=== PATIENT | male | born 1980 | race Caucasian/White ===

== ENCOUNTER 2021-12-23 21:06 | Emergency (ER) | payer MEDICARE, MEDICAID, SELFPAY ==
--- NOTE | 2021-12-23 | ECG_ITS ---
Test Reason : CHEST PAIN Blood Pressure : / mmHG Vent. Rate : 104 BPM Atrial Rate : 104 BPM P-R Int : 148 ms QRS Dur : 094 ms QT Int : 322 ms P-R-T Axes : 024 064 -07 degrees QTc Int : 423 ms Sinus tachycardia Abnormal QRS-T angle, consider primary T wave abnormality Abnormal ECG When compared with ECG of 31-OCT-2019 19:05, No significant change was found Referred By: Generic ED Physician Electronically Signed By:ROLY BONILLA MD
--- NOTE | ~2021-12-23 | XR_ITS ---
EXAMINATION: XR CHEST CLINICAL INFORMATION: Chest pain COMPARISON: None TECHNIQUE: Frontal view of the chest was obtained. 11:08 PM FINDINGS: No significant abnormality is noted involving the heart, lungs, mediastinum, bony thorax or soft tissues. XR/XR chest 1V IMPRESSION: Unremarkable examination.
[2021-12-23 21:11] VITALS: BP 136/92; PULSE 112; RESP 18; TEMP 37.2; O2SAT 97; BMI 33.9
[2021-12-23 22:17] LABS: MANUAL DIFF FLAG NO
[2021-12-23 22:19] LABS: Basophils Absolute Auto 0.1 X10*3/uL (0.0-0.2); Basophils Percent Auto 0.8 % (0-2); Eosinophils Absolute Auto 0.5 X10*3/uL (0.0-0.4); Eosinophils Percent Auto 5.5 % (0-4); Hematocrit 46.8 % (42.0-52.0); Hemoglobin 15.5 g/dl (14.0-18.0); Imm Gran Abs Auto 0.03 X10*3/uL (0.00-0.03); Imm Gran Pct Auto 0.3 % (0.0-0.4); Lymphocytes Percent Auto 34.6 % (20-40); Mean Corpuscular HGB Conc 33.1 g/dl (31.0-36.0); Mean Corpuscular Hemoglobin 27.4 pg (27.0-33.0); Mean Corpuscular Volume 82.8 fL (80.0-98.0); Monocytes Absolute Auto 0.6 X10*3/uL (0.1-1.2); Monocytes Percent Auto 7.2 % (2-11); Neutrophils Absolute Auto 4.5 x10*3/uL (2.0-8.3); Neutrophils Percent Auto 51.6 % (45-73); Platelet Count 279 X10*3/uL (160-400); Red Blood Count 5.65 X10*6/uL (4.60-5.80); Red Cell Distribution Width 13.4 % (11.0-16.0); White Blood Count 8.8 X10*3/uL (4.8-10.8)
[2021-12-23 22:39] LABS: Alanine Aminotransferase 60 U/L (0-40); Alkaline Phosphatase 73 U/L (39-117); Anion Gap 13 (12-20); Aspartate Amino Transferase 27 U/L (5-37); Bilirubin Total 0.4 mg/dL (0.0-1.0); Blood Urea Nitrogen 16 mg/dL (9-16); Calcium 9.5 mg/dL (8.4-10.2); Carbon Dioxide 24 mmol/L (22-29); Chloride 108 mmol/L (96-108); Creatinine Clr Calc Pharmacy 102.1; Estimated Glomerular Filt Rate > 60; Glucose Random 94 mg/dL (60-115); Potassium 3.6 mmol/L (3.3-5.1); Sodium 141 mmol/L (135-145); Total Protein 7.3 g/dL (6.5-8.0)
[2021-12-23 22:45] LABS: Troponin-I High Sensitivity < 3.5 ng/L (<3.5-35.0)
--- NOTE | 2021-12-23 23:27 | ED.CHESTPAIN ---
HPI - Chest Pain General Chief Complaint: Chest Pain Stated Complaint: States heart hurts Time Seen by Provider: 12/23/21 23:14 Source: patient Mode of arrival: ambulatory Limitations: no limitations History of Present Illness HPI narrative: Patient comes to emergency room complaining of intermittent sharp chest pains lasting a few seconds, it has been going on for about 4 days now. Patient denies shortness of breath, no difficulty breathing. Patient states that he does not have chest pain, states that he feels like a sharp sensation in his heart intermittently. At this time, patient is asymptomatic. Patient denies fever chills, no URI symptoms, no calf pain Related Data Allergies Allergy/AdvReac Type Severity Reaction Status Date / Time No Known Allergies Allergy Unverified 05/02/20 18:21 Review of Systems Review of Systems: Constitutional : No Weight loss, No Fever, No Chills, No Night Sweats, No Fatigue, No Malaise ENT/Mouth : No Hearing loss, No Ear Pain, No Nasal Congestion, No Sinus Pain, No Hoarseness, No sore throat, No Rhinorrhea, No Swallowing Difficulty Eyes: No Eye Pain, No Swelling, No Redness, No Foreign Body, No Discharge, No Vision Changes Cardiovascular : Intermittent sharp pain sensation, asymptomatic a prescribed, No Chest Pain, No SOB, No Dyspnea on Exertion, No Orthopnea, No Edema, No Palpitations Respiratory : No Cough, No Sputum, No Wheezing, No Smoke Exposure, No Dyspnea Gastrointestinal : No Nausea, No Vomiting, No Diarrhea, No Constipation, No abdominal Pain, No Hematochezia, No Melena Genitourinary : no irregular bleeding, No Dysuria, No Urinary Frequency, No Hematuria, No Urinary Incontinence, No Urgency, No Flank Pain, No Urinary Flow Changes, No Hesitancy Musculoskeletal : No joint pain, No Myalgias, No Joint Swelling Skin : No Skin Lesions, No rash Neuro : No Weakness, No Numbness, No Paresthesias, No Loss of Consciousness, No Dizziness, No Headache Psych : No Anxiety/Panic, No Depression, No SI/HI/AH/VH, No Social Issues, Heme/Lymph: No Bruising, No Bleeding,No Lymphadenopathy Endocrine : No Polyuria, No Polydipsia, No Temperature Intolerance PMFSH Past Medical History Medical History No known health problems Surgical History No history of previous surgery Physical Exam Vital Signs: Vital Signs: Last Vital Signs Temp 99.0 F 12/23/21 21:11 Pulse 112 H 12/23/21 21:11 Resp 18 12/23/21 21:11 BP 136/92 H 12/23/21 21:11 Pulse Ox 97 12/23/21 21:11 BMI result Body Mass Index 33.9 Const: Other: Appearance: Alert. Oriented X3. No acute distress. Eyes: Pupils equal, round and reactive to light. ENT: Pharynx normal. Neck: Normal inspection. Neck supple. No lymph nodes noted. No crepitus CVS: Normal heart rate and rhythm. Pulses normal. Normal S1 and S2, heart rate approximately 80-90 Respiratory: No respiratory distress. Breath sounds normal. No Wheezing. No rales Abdomen: Soft and nontender. No rigidity. No distention. Skin: Skin warm and dry. Normal skin color. Normal skin turgor. Extremities: No lower extremity edema. No Lacerations. No Rash Neuro: Oriented X 3. No motor deficit. No sensory deficit. Moving all extremities. No slurred speech. CN 2 through 12 grossly intact Psych: calm, cooperative, normal affect Course Course Course Narrative: I discussed the labs and imaging with the patient, no acute findings. Patient is well appearing, is asymptomatic . Troponin negative despite having symptoms for 4 days. Wells criteria score for pulmonary embolism is 0 Is likely that patient's source of pain is musculoskeletal other than cardiac. I discussed with the patient that if he continues having symptoms, he would benefit from a stress test evaluation. MDM - Chest Pain Lab Data Result diagrams: 12/23/21 22:10 12/23/21 22:10 Labs: Lab Results 12/23/21 12/23/21 12/23/21 Range/Units 22:10 22:10 22:10 WBC 8.8 (4.8-10.8) X10*3/uL RBC 5.65 (4.60-5.80) X10*6/uL Hgb 15.5 (14.0-18.0) g/dl Hct 46.8 (42.0-52.0) % MCV 82.8 (80.0-98.0) fL MCH 27.4 (27.0-33.0) pg MCHC 33.1 (31.0-36.0) g/dl RDW 13.4 (11.0-16.0) % Plt Count 279 (160-400) X10*3/uL MPV 10.0 (9.4-12.4) fL Immature Gran % (Auto) 0.3 (0.0-0.4) % Neut % (Auto) 51.6 (45-73) % Lymph % (Auto) 34.6 (20-40) % [place] % (Auto) 7.2 (2-11) % Eos % (Auto) 5.5 H (0-4) % Baso % (Auto) 0.8 (0-2) % Lymph # (Auto) 3.0 (1.2-4.9) X10*3/uL [place] # (Auto) 0.6 (0.1-1.2) X10*3/uL Eos # (Auto) 0.5 H (0.0-0.4) X10*3/uL Baso # (Auto) 0.1 (0.0-0.2) X10*3/uL Abs Immat Gran (auto) 0.03 (0.00-0.03) X10*3/uL Absolute Neuts (auto) 4.5 (2.0-8.3) x10*3/uL Absolute Nucleated RBC 0.000 (0.0-0.012) X10*3/uL Nucleated RBC % (auto) 0.0 (0.0-0.2) /100WBC Sodium 141 (135-145) mmol/L Potassium 3.6 (3.3-5.1) mmol/L Chloride 108 (96-108) mmol/L Carbon Dioxide 24 (22-29) mmol/L Anion Gap 13 (12-20) BUN 16 (9-16) mg/dL Creatinine 1.25 (0.5-1.4) mg/dL Estim Creat Clear Calc 102.1 Estimated GFR > 60 Random Glucose 94 (60-115) mg/dL Calcium 9.5 (8.4-10.2) mg/dL Total Bilirubin 0.4 (0.0-1.0) mg/dL AST 27 (5-37) U/L ALT 60 H (0-40) U/L Alkaline Phosphatase 73 (39-117) U/L Troponin I High Sens < 3.5 (<3.5-35.0) ng/L Total Protein 7.3 (6.5-8.0) g/dL Albumin 4.0 (3.5-5.0) g/dL Imaging Data Chest x-ray: Radiologist's impression: No significant abnormality is noted involving the heart, lungs, mediastinum, bony thorax or soft tissues. XR/XR chest 1V IMPRESSION: Unremarkable examination. ECG Data ECG #1: Attestation: I personally reviewed and interpreted this ECG as follows: (One hundred one 4, sinus tachycardia, nonspecific T-wave inversions in leads 3 and 4, no reciprocal changes, no ST depressions or elevations, QTC 423, no changes since EKG from October 2019) Discharge Plan Discharge Clinical Impression: Atypical chest pain Patient Disposition: Home, Self-Care Instructions: Chest Pain (ED) Additional Instructions: Please follow-up with your primary care physician tomorrow. If you have any worsening or new symptoms, please return to the emergency room or call 911
[2021-12-23 23:41] VITALS: BP 149/90; PULSE 85; RESP 16; TEMP 36.7; O2SAT 96
[2021-12-23 23:43] VITALS: PULSE 85
== END 2021-12-23 23:49 | disposition home or self-care (01) ==
LOC: HO.ED 23:41
PROVIDERS: Emergency Provider Emergency Medicine
DX: R07.89 Other chest pain (principal); Z79.899 Other long term (current) drug therapy
CPT/HCPCS: 36415; 71045; 80053; 84484; 85025; 93005; 99283; 99285

== ENCOUNTER 2022-08-26 21:38 | Emergency (ER) | payer MEDICARE, MEDICAID, SELFPAY ==
--- NOTE | ~2022-08-26 | CT_ITS ---
EXAMINATION: CT ABDOMEN AND PELVIS WITHOUT CONTRAST CLINICAL INFORMATION: Flank pain, right COMPARISON: None TECHNIQUE: Multidetector volumetric imaging was performed from the superior aspect of the liver through the pubic symphysis. Sagittal and coronal reformatted images were obtained on the technologist's workstation. This CT examination was performed using dose optimization techniques as appropriate, variously including the following: *Automated exposure control *Adjustment of mA and/or kV according to patient size (this includes techniques or standardized protocols for targeted exams where dose is matched to indication/reason for exam; i.e. extremities or head) *Use of iterative reconstruction technique DLP: 649 mGy-cm FINDINGS: LUNG BASES: The visualized lung bases are unremarkable. LIVER, GALLBLADDER, AND BILIARY TREE: The liver is normal in size, shape, and attenuation. No focal hepatic lesion or biliary ductal dilatation is present. The gallbladder is unremarkable with no evidence of radiopaque gallstones, gallbladder wall thickening, or obvious pericholecystic inflammatory changes. PANCREAS: Unremarkable. SPLEEN: Unremarkable. ADRENAL GLANDS: Unremarkable. KIDNEYS AND URETERS: The kidneys are normal in size, shape, and attenuation. No hydronephrosis or hydroureter. 0.3 cm right midpole renal calculus left lower pole 0.3 cm calculus is 10.5 cm from the posterior axillary line. BLADDER: Decompressed with no gross abnormality. GASTROINTESTINAL TRACT: Decompressed stomach. Normal caliber small bowel. No obstruction. Normal appendix. No colonic wall thickening or acute inflammation. No free air or free fluid. ABDOMINAL WALL: No significant hernia is appreciated. LYMPH NODES: Normal. VASCULAR: Unremarkable. PELVIC VISCERA: The prostate and seminal vesicles are unremarkable. OSSEOUS STRUCTURES: No acute or suspicious osseous abnormality. Mild degenerative changes throughout the spine. CT/CT abdomen pelvis wo IV con IMPRESSION: No acute findings in the abdomen or pelvis. No hydronephrosis. Bilateral nonobstructing renal calculi. Fleischner guidelines were followed.
[2022-08-26 21:48] VITALS: BP 129/90; PULSE 102; RESP 16; TEMP 36.4; O2SAT 98; BMI 33.9
--- NOTE | 2022-08-26 21:57 | ED_ITS ---
HPI - General Adult General Chief complaint: Abdominal Pain Stated complaint: back pain Time Seen by Provider: 08/26/22 21:49 Source: patient Mode of arrival: ambulatory Limitations: no limitations History of Present Illness HPI narrative: 32-year-old male came in for evaluation of back pain. Mostly right flank area pain radiates down to the right lower abdomen/right groin area. Pain is worse with movement. No dysuria, no hematuria, no urinary frequency, no fever, no chills, no nausea, no vomiting. Passing flatus with normal bowel movement earlier today. Patient declined any back injury or trauma. Related Data Allergies Allergy/AdvReac Type Severity Reaction Status Date / Time No Known Allergies Allergy Unverified 05/02/20 18:21 Review of Systems Review of Systems: All other systems are reviewed and are negative Constitutional: Reports as per HPI and Reports no additional constitutional complaints Eyes: Reports as per HPI and Reports no additional eye complaints Reports system reviewed and no additional complaints, except as documented Cardiovascular: Reports as per HPI and Reports no additional cardiovascular complaints Respiratory: Reports as per HPI and Reports no additional respiratory complaints Gastrointestinal: Reports as per HPI and Reports no additional gastrointestinal complaints Genitourinary: Reports no additional female genitourinary complaints Musculoskeletal: Reports no additional musculoskeletal complaints Skin/Breast: Reports system reviewed and no additional complaints, except as docu Psychiatric: Reports no additional psychiatric complaints Endocrine: Reports no additional endocrine complaints Hematologic/Lymphatic: Reports no additional hematologic/lymphatic complaints Allergic/Immunologic: Reports no additional allergic/immunologic complaints Reports system reviewed and no additional complaints, except as documented and Reports Abnormal speech present [facility] Past Medical History Medical History No known health problems Surgical History No history of previous surgery Social History Social History Alcohol intake: never Advance Directives: No Advance Directives Information Provided: Yes Physical Exam ED Vital Signs: Vital Signs - 24 hr 08/26/22 21:48 Temperature 97.6 F Pulse Rate 102 H Respiratory Rate 16 Blood Pressure 129/90 H Pulse Oximetry 98 Oxygen Delivery Method Room Air BMI result Body Mass Index 33.9 Vital signs have been reviewed as appeared to be correct. Blood pressure normal. Heart rate normal. Respiration rate normal. Temperature normal. Oxygen saturation normal. Appearance: Alert. Oriented X3. No acute distress. Head: Normal external exam. Normocephalic. Atraumatic. No Temple signs noted. No raccoon eyes noted Eyes: PERRLA. EOMI. Conjunctiva and sclera normal. Eyelids normal. ENT: TM's Normal. Pharynx normal. Uvula midline. Moist mucous membranes. No trismus noted. No drooling noted. No muffled voice noted. Neck: Normal inspection. Neck supple. FROM. No adenopathy. Thyroid Normal. No meningeal signs. No neck mass noted. CVS: Normal heart rate and rhythm. Heart sound normal. No murmurs noted. Pulses normal throughout. Respiratory: No respiratory distress. Painless inspiration. Breath sounds normal . No wheezes/rales/rhonchi noted. Chest nontender. No accessory muscle usage noted or decreased air movement noted. Abdomen: Soft and nontender. Bowel sounds normal in all 4 quadrants. No distention noted. No organomegaly noted. No visible injury noted. Back: No CVA tenderness. Full range of motion noted. Skin: Skin warm and dry. Normal skin color. Normal skin turgor. No rashes/lesions/lacerations noted. Extremities: No lower extremity edema. Extremities exhibit normal range of motion. Extremities nontender. Neuro: Oriented X 3. Cranial nerve exam: II-XII are grossly intact No motor deficit. No sensory deficit. Reflexes normal. Course Course Course Narrative: Right flank pain, few RBCs in the UA concern of possible right kidney stone will consider CT of the abdomen and pelvis rule out kidney stone. Case signed out to Dr. Philip. Medical Decision Making Differential Diagnosis Differential Diagnoses: The differential diagnosis associated with the presentation includes (Myofascial pain syndrome, right obstructing kidney stone, lumbar radiculopathy) Lab Data MDM Lab Attestation statement: I reviewed the patient's lab results. 08/26/22 22:07 08/26/22 22:07 Labs: Lab Results 08/26/22 08/26/22 08/26/22 Range/Units 22:03 22:07 22:07 WBC 10.9 H (4.8-10.8) X10*3/uL RBC 6.01 H (4.60-5.80) X10*6/uL Hgb 16.3 (14.0-18.0) g/dl Hct 48.3 (42.0-52.0) % MCV 80.4 (80.0-98.0) fL MCH 27.1 (27.0-33.0) pg MCHC 33.7 (31.0-36.0) g/dl RDW 13.4 (11.0-16.0) % Plt Count 315 (160-400) X10*3/uL MPV 9.8 (9.4-12.4) fL Absolute Nucleated RBC 0.000 (0.0-0.012) X10*3/uL Nucleated RBC % (auto) 0.0 (0.0-0.2) /100WBC Sodium 136 (135-145) mmol/L Potassium 3.8 (3.3-5.1) mmol/L Chloride 107 (96-108) mmol/L Carbon Dioxide 21 L (22-29) mmol/L Anion Gap 12 (12-20) BUN 12 (9-16) mg/dL Creatinine 0.97 (0.5-1.4) mg/dL Estim Creat Clear Calc 130.2 Estimated GFR > 60 Random Glucose 94 (60-115) mg/dL Calcium 9.2 (8.4-10.2) mg/dL Total Bilirubin 0.4 (0.0-1.0) mg/dL Direct Bilirubin < 0.2 (0.0-0.5) mg/dL AST 25 (5-37) U/L ALT 41 H (0-40) U/L Alkaline Phosphatase 75 (39-117) U/L Total Protein 7.8 (6.5-8.0) g/dL Albumin 4.4 (3.5-5.0) g/dL Lipase 53 (8-78) U/L Urine Color Yellow Urine Appearance Clear Urine pH 6.0 (5.0-9.0) Ur Specific [place] 1.025 (1.005-1.025) Urine Protein Negative (Neg-Trace) mg/dL Urine Glucose (UA) Negative (Negative) mg/dL Urine Ketones Negative (Negative) mg/dL Urine Blood Trace (Negative) Urine Nitrite Negative (Negative) Ur Leukocyte Esterase Negative (Negative) Urine RBC 3-5 H (0-2) /HPF Urine WBC 0-5 (0-5) /HPF Ur Squamous Epith Cells 0-2 (0-2) /HPF Urine Bacteria None Seen (None Seen) Hyaline Casts 0-2 (0-2) /LPF Discharge Plan Discharge Clinical Impression: Acute right flank pain Patient Disposition: Still a Patient
[2022-08-26 22:15] LABS: Hematocrit 48.3 % (42.0-52.0); Hemoglobin 16.3 g/dl (14.0-18.0); Mean Corpuscular HGB Conc 33.7 g/dl (31.0-36.0); Mean Corpuscular Hemoglobin 27.1 pg (27.0-33.0); Mean Corpuscular Volume 80.4 fL (80.0-98.0); Mean Platelet Volume 9.8 fL (9.4-12.4); Platelet Count 315 X10*3/uL (160-400); Red Blood Count 6.01 X10*6/uL (4.60-5.80); Red Cell Distribution Width 13.4 % (11.0-16.0); White Blood Count 10.9 X10*3/uL (4.8-10.8)
[2022-08-26 22:15] LABS: Appearance Urine Clear; Color Urine Yellow; Glucose Urine UA Negative (Negative); Leukocyte Esterase Urine Negative (Negative); Nitrite Urine Negative (Negative); Specific Gravity - Urine 1.025 (1.005-1.025); UMIC TRIGGER UACC YES; Urine Blood Trace (Negative); Urine Ketones Negative (Negative); Urine Protein Negative (Neg-Trace)
[2022-08-26 22:16] LABS: Bacteria Urine None Seen (None Seen); Hyaline Casts Urine 0-2 /LPF (0-2); Squamous Epithelial Cell Urine 0-2 /HPF (0-2); WBC Urine 0-5 /HPF (0-5)
[2022-08-26 22:34] LABS: Alanine Aminotransferase 41 U/L (0-40); Albumin Level 4.4 g/dL (3.5-5.0); Alkaline Phosphatase 75 U/L (39-117); Anion Gap 12 (12-20); Aspartate Amino Transferase 25 U/L (5-37); Bilirubin Direct < 0.2 mg/dL (0.0-0.5); Bilirubin Total 0.4 mg/dL (0.0-1.0); Blood Urea Nitrogen 12 mg/dL (9-16); Calcium 9.2 mg/dL (8.4-10.2); Carbon Dioxide 21 mmol/L (22-29); Chloride 107 mmol/L (96-108); Creatinine Clr Calc Pharmacy 130.2; Estimated Glomerular Filt Rate > 60; Glucose Random 94 mg/dL (60-115); Lipase 53 U/L (8-78); Potassium 3.8 mmol/L (3.3-5.1); Sodium 136 mmol/L (135-145); Total Protein 7.8 g/dL (6.5-8.0)
[2022-08-27 00:47] VITALS: BP 115/84; PULSE 87; RESP 12; TEMP 36.7; O2SAT 100
--- NOTE | 2022-08-27 00:57 | PC.NURSE ---
Pt aox4 resting at the bedside. Pt reports no pain at this time but feels something is there that shouldn't be there. I don't know how to explain it. Referring to the right flank. No apparent distress noted at this time. VSS. Pt pending CT results and aware of plan of care.
--- NOTE | 2022-08-27 01:50 | PC.NURSE ---
Discharge instructions reviewed with pt. Pt verbalizes understanding.
== END 2022-08-27 01:51 | disposition home or self-care (01) ==
PROVIDERS: Emergency Provider Emergency Medicine
DX: M54.50 Low back pain, unspecified (principal); R10.9 Unspecified abdominal pain; Z79.899 Other long term (current) drug therapy
CPT/HCPCS: 36415; 74176; 80053; 81001; 82248; 83690; 85027; 99283; 99284

== ENCOUNTER 2022-09-20 14:44 | Emergency (ER) | payer MEDICARE, MEDICAID, SELFPAY ==
--- NOTE | ~2022-09-20 | CT_ITS ---
EXAMINATION: CT ABDOMEN AND PELVIS WITH CONTRAST CLINICAL INFORMATION: Flank pain COMPARISON: 08/26/2022 TECHNIQUE: Multidetector volumetric images were obtained from the superior aspect of the liver through the pubic symphysis following administration 85 mL of Omnipaque 350 intravenous contrast. Sagittal and coronal reformatted images were obtained on the technologist's workstation. Oral contrast: No This CT examination was performed using dose optimization techniques as appropriate, variously including the following: *Automated exposure control *Adjustment of mA and/or kV according to patient size (this includes techniques or standardized protocols for targeted exams where dose is matched to indication/reason for exam; i.e. extremities or head) *Use of iterative reconstruction technique DLP: 820 mGy-cm FINDINGS: LUNG BASES: The visualized lung bases are unremarkable. LIVER, GALLBLADDER, AND BILIARY TREE: Some scattered areas of low attenuation liver may well be incidental. Largest measures 5 mm in the left lobe. The gallbladder is unremarkable with no evidence of radiopaque gallstones, gallbladder wall thickening, or obvious pericholecystic inflammatory changes. PANCREAS: Unremarkable. SPLEEN: Unremarkable. ADRENAL GLANDS: Unremarkable. KIDNEYS AND URETERS: Nonobstructing small 3 mm calculus left kidney. Some small low-density structures in the kidneys may well represent evolving cysts. To small to characterize. BLADDER: Unremarkable. Note is made of a probable urachal remnant emanating to the umbilicus. GASTROINTESTINAL TRACT: The bowel pattern is nonobstructing. No free fluid. The appendix is normal. ABDOMINAL WALL: At the level of the umbilicus probable small herniation of omental fat. LYMPH NODES: Normal. VASCULAR: Unremarkable. PELVIC VISCERA: Unremarkable. OSSEOUS STRUCTURES: Unremarkable. CT/CT abdomen pelvis w IV con IMPRESSION: No acute finding. The bowel pattern is nonobstructing. There is no free fluid. Small 3 mm nonobstructing calculus left kidney. Other findings are as described. Fleischner guidelines were followed.
[2022-09-20 14:49] VITALS: BP 144/96; PULSE 76; RESP 16; TEMP 36.8; O2SAT 100; BMI 33.9
[2022-09-20 15:23] LABS: MANUAL DIFF FLAG NO
[2022-09-20 15:24] LABS: Basophils Absolute Auto 0.1 X10*3/uL (0.0-0.2); Basophils Percent Auto 0.7 % (0-2); Eosinophils Absolute Auto 0.7 X10*3/uL (0.0-0.4); Eosinophils Percent Auto 7.1 % (0-4); Hematocrit 46.2 % (42.0-52.0); Hemoglobin 15.5 g/dl (14.0-18.0); Imm Gran Abs Auto 0.02 X10*3/uL (0.00-0.03); Imm Gran Pct Auto 0.2 % (0.0-0.4); Lymphocytes Absolute Auto 3.2 X10*3/uL (1.2-4.9); Mean Corpuscular HGB Conc 33.5 g/dl (31.0-36.0); Mean Corpuscular Volume 80.3 fL (80.0-98.0); Mean Platelet Volume 9.9 fL (9.4-12.4); Monocytes Absolute Auto 0.5 X10*3/uL (0.1-1.2); Monocytes Percent Auto 5.5 % (2-11); Neutrophils Absolute Auto 4.7 x10*3/uL (2.0-8.3); Neutrophils Percent Auto 51.5 % (45-73); Platelet Count 284 X10*3/uL (160-400); Red Blood Count 5.75 X10*6/uL (4.60-5.80); Red Cell Distribution Width 13.4 % (11.0-16.0); White Blood Count 9.1 X10*3/uL (4.8-10.8)
[2022-09-20 15:26] LABS: Appearance Urine Clear; Color Urine Yellow; Glucose Urine UA Negative (Negative); Leukocyte Esterase Urine Negative (Negative); Nitrite Urine Negative (Negative); UMIC TRIGGER UACC YES; Urine Blood Trace (Negative); Urine Ketones Negative (Negative); Urine Protein Negative (Neg-Trace)
[2022-09-20 15:29] LABS: Bacteria Urine None Seen (None Seen); Hyaline Casts Urine 0-2 /LPF (0-2); RBC Urine 0-2 /HPF (0-2); Squamous Epithelial Cell Urine 0-2 /HPF (0-2); WBC Urine 0-5 /HPF (0-5)
[2022-09-20 15:37] LABS: Anion Gap 15 (12-20); Blood Urea Nitrogen 11 mg/dL (9-16); Calcium 9.7 mg/dL (8.4-10.2); Carbon Dioxide 21 mmol/L (22-29); Chloride 107 mmol/L (96-108); Creatinine Clr Calc Pharmacy 127.6; Estimated Glomerular Filt Rate > 60; Glucose Random 95 mg/dL (60-115); Potassium 4.2 mmol/L (3.3-5.1); Sodium 139 mmol/L (135-145)
--- NOTE | 2022-09-20 16:22 | ED.MALEGU ---
HPI - Male Genitourinary General Chief complaint: Urogenital-Male Stated complaint: kidney issues Time Seen by Provider: 09/20/22 16:21 Source: patient Mode of arrival: ambulatory Limitations: no limitations History of Present Illness HPI Narrative: 42-year-old male presents with right-sided flank pain for the last 3 days, states that he has had prior history of kidney stones but this feels a little bit different. He does not have any difficulty with voiding, denies fevers and chills. MD Complaint: other ( Right flank pain.) Onset (ago): day(s) (3) Duration: constant and progressively worsening Location: right flank Severity: severe Severity scale (1-10): 10 Quality: sharp and stabbing Relieving factors: none Exacerbating factors: movement Associated symptoms: Reports denies other symptoms Related Data Previous Rx's Medication Instructions Recorded ibuprofen 400 mg tablet 400 mg PO TID #10 tabs 08/27/22 ibuprofen 600 mg tablet 600 mg PO Q6H PRN pain #60 tabs 09/20/22 tamsulosin 0.4 mg capsule (Flomax) 0.4 mg PO DAILY #14 caps 09/20/22 Allergies Allergy/AdvReac Type Severity Reaction Status Date / Time No Known Allergies Allergy Verified 09/20/22 14:48 Review of Systems Review of Systems: Constitutional: No Fever, No Chills Cardiovascular: No Chest Pain, No SOB Respiratory: No Cough, No Dyspnea Gastrointestinal: No Nausea, No Vomiting, No Diarrhea, Positive right flank abdominal Pain Genitourinary: No Dysuria, No Hematuria Musculoskeletal: no joint pain, No Myalgias, No Joint Swelling Skin: No Skin lacerations, No rash Neuro: No Weakness, No Dizziness, No Headache Yes all other systems are reviewed and are negative [facility] Past Medical History Attestation statement: The following information was validated with the patient. Source: old records reviewed Medical History No known health problems Surgical History No history of previous surgery Social History Social History Alcohol intake: never Smoked in Last 30 Days: No Use of substances other than those prescribed or required for medical reasons: No Advance Directives: No Advance Directives Information Provided: No Physical Exam Vital Signs: Vital Signs: Last Vital Signs Temp 97.7 F 09/20/22 17:54 Pulse 73 09/20/22 17:54 Resp 16 09/20/22 14:49 BP 112/74 09/20/22 17:54 Pulse Ox 100 09/20/22 17:54 O2 Del Method 09/20/22 17:54 BMI result Body Mass Index 33.9 Appearance: Alert. Oriented X3. moderatedistress. Eyes: Pupils equal, round and reactive to light. ENT: Pharynx normal. Neck: Normal inspection. Neck supple. CVS: Normal heart rate and rhythm. Pulses normal. Respiratory: No respiratory distress. Breath sounds normal. Abdomen: Soft and nontender. right CVA tenderness. Skin: Skin warm and dry. Normal skin color. Normal skin turgor. Extremities: No lower extremity edema. Gait well-balanced well coordinated. Neuro: No motor deficit. No sensory deficit. Cranial nerves 2-12 intact. Course Course Course Narrative: 42-year-old male with right-sided flank pain for the past [address] scan completed while he was in the emergency department waiting room, labs are negative for acute findings, trace amount of heme in his urinalysis. No indication of infection. CT scan abdomen pelvis indicates a nonobstructing 3 mm kidney stone the right side. Will give fluids, and Toradol. Patient's physical presentation is within normal limits, afebrile, nontoxic, speaking in complete sentences, mild distress secondary to pain. 19:15 patient states that he feels better, Plan of care is to discharge home with Flomax, ibuprofen, and follow up with Urology as needed. Patient verbalized understanding of and agrees to plan of care discharge home. Verbalized understanding of signs and symptoms indicating need for emergent intervention. Medications Administered Discontinued Medications Generic Name Dose Route Start Last Admin Trade Name Freq PRN Reason Stop Dose Admin Sodium Chloride 1,000 mls @ 999 mls/hr 09/20/22 16:30 09/20/22 18:10 Ns IVCONT 09/20/22 17:30 Infused .Q1H1M BILL Infusion Iohexol 100 ml 09/20/22 17:21 09/20/22 17:22 Iohexol 350 Mg/Ml 100 Ml Infus..Btl IV 09/20/22 17:22 85 ml ONCE ONE Administration Ketorolac Tromethamine 30 mg 09/20/22 16:22 09/20/22 16:41 Ketorolac Tromethamine 30 Mg/Ml Vial IVPUSH 09/20/22 16:23 30 mg ONCE ONE Administration Medical Decision Making Differential Diagnosis Differential Diagnoses: The differential diagnosis associated with the presentation includes Hydronephrosis nephrolithiasis, pyelonephritis, acute abdomen the diverticulitis Lab Data MDM Lab Attestation statement: I reviewed the patient's lab results. 09/20/22 15:19 09/20/22 15:19 Labs: Lab Results 09/20/22 09/20/22 09/20/22 Range/Units 15:19 15:19 15:19 WBC 9.1 (4.8-10.8) X10*3/uL RBC 5.75 (4.60-5.80) X10*6/uL Hgb 15.5 (14.0-18.0) g/dl Hct 46.2 (42.0-52.0) % MCV 80.3 (80.0-98.0) fL MCH 27.0 (27.0-33.0) pg MCHC 33.5 (31.0-36.0) g/dl RDW 13.4 (11.0-16.0) % Plt Count 284 (160-400) X10*3/uL MPV 9.9 (9.4-12.4) fL Immature Gran % (Auto) 0.2 (0.0-0.4) % Neut % (Auto) 51.5 (45-73) % Lymph % (Auto) 35.0 (20-40) % [place] % (Auto) 5.5 (2-11) % Eos % (Auto) 7.1 H (0-4) % Baso % (Auto) 0.7 (0-2) % Lymph # (Auto) 3.2 (1.2-4.9) X10*3/uL [place] # (Auto) 0.5 (0.1-1.2) X10*3/uL Eos # (Auto) 0.7 H (0.0-0.4) X10*3/uL Baso # (Auto) 0.1 (0.0-0.2) X10*3/uL Abs Immat Gran (auto) 0.02 (0.00-0.03) X10*3/uL Absolute Neuts (auto) 4.7 (2.0-8.3) x10*3/uL Absolute Nucleated RBC 0.000 (0.0-0.012) X10*3/uL Nucleated RBC % (auto) 0.0 (0.0-0.2) /100WBC Sodium 139 (135-145) mmol/L Potassium 4.2 (3.3-5.1) mmol/L Chloride 107 (96-108) mmol/L Carbon Dioxide 21 L (22-29) mmol/L Anion Gap 15 (12-20) BUN 11 (9-16) mg/dL Creatinine 0.99 (0.5-1.4) mg/dL Estim Creat Clear Calc 127.6 Estimated GFR > 60 Random Glucose 95 (60-115) mg/dL Calcium 9.7 (8.4-10.2) mg/dL Urine Color Yellow Urine Appearance Clear Urine pH 5.0 (5.0-9.0) Ur Specific [place] 1.020 (1.005-1.025) Urine Protein Negative (Neg-Trace) mg/dL Urine Glucose (UA) Negative (Negative) mg/dL Urine Ketones Negative (Negative) mg/dL Urine Blood Trace H (Negative) Urine Nitrite Negative (Negative) Ur Leukocyte Esterase Negative (Negative) Urine RBC 0-2 (0-2) /HPF Urine WBC 0-5 (0-5) /HPF Ur Squamous Epith Cells 0-2 (0-2) /HPF Urine Bacteria None Seen (None Seen) Hyaline Casts 0-2 (0-2) /LPF Independent Interpretation I performed an independent interpretation of an: CT Scan Radiology Impression Discussion of test interpretation with radiology: I have reviewed the radiologist's reading. Radiologist Impression: FINDINGS: LUNG BASES: The visualized lung bases are unremarkable.? LIVER, GALLBLADDER, AND BILIARY TREE: Some scattered areas of low attenuation liver may well be incidental. Largest measures 5 mm in the left lobe. The gallbladder is unremarkable with no evidence of radiopaque gallstones, gallbladder wall thickening, or obvious pericholecystic inflammatory changes.? PANCREAS: Unremarkable.? SPLEEN: Unremarkable.? ADRENAL GLANDS: Unremarkable.? KIDNEYS AND URETERS: Nonobstructing small 3 mm calculus left kidney. Some small low-density structures in the kidneys may well represent evolving cysts. To small to characterize. BLADDER: Unremarkable. Note is made of a probable urachal remnant emanating to the umbilicus. GASTROINTESTINAL TRACT: The bowel pattern is nonobstructing. No free fluid. The appendix is normal.? ABDOMINAL WALL: At the level of the umbilicus probable small herniation of omental fat.? LYMPH NODES: Normal. VASCULAR: Unremarkable. PELVIC VISCERA: Unremarkable.? OSSEOUS STRUCTURES: Unremarkable.? CT/CT abdomen pelvis w IV con IMPRESSION: No acute finding. The bowel pattern is nonobstructing. There is no free fluid. ? Small 3 mm nonobstructing calculus left kidney. ? Other findings are as described.? ? Fleischner guidelines were followed External Record Review External record reviewed: Outpatient record and Prior outpatient labs Prescription Management I considered prescription management with: Pain Medication Discharge Plan Discharge Clinical Impression: Kidney stone Patient Disposition: Home, Self-Care Instructions: Kidney Stones (ED) Additional Instructions: you were evaluated for flank pain. CT scan indicates nonobstructing kidney stone. Please drink plenty of fluids. Take Flomax daily for the next 14 days. Please follow-up with Dr. Mcdonald if symptoms persist. Dr. Mcdonald is a urologist, please call and request an appointment for evaluation. Alternate Tylenol 650 mg every 6 hours and Motrin 600 mg every 6 hours as needed for pain and fever management. Consider taking these medications 3 hours apart so you have pain and fever management every 3 hours. Write down what time you take these medications to prevent accidental overdose. Thank you for choosing this emergency department for evaluation. Please follow-up with primary care physician as needed. Return to the emergency department for any new, concerning, or worsening symptoms. Prescriptions: New tamsulosin [Flomax] 0.4 mg capsule 0.4 mg PO DAILY Qty: 14 0RF ibuprofen 600 mg tablet 600 mg PO Q6H PRN (Reason: pain) Qty: 60 0RF No Action ibuprofen 400 mg tablet 400 mg PO TID Qty: 10 0RF Referrals: Jose Mcdonald MD [Physician] - 2 weeks ( nonobstructing kidney stone ) Interventions: ED Discharge Assessment Last Done: 09/20/22 19:39 Discharge Date/Time: 09/20/22 19:39
[2022-09-20] MEDS: Ketorolac Tromethamine 30 MG/ML VIAL IVPUSH (16:41)
[2022-09-20] MEDS: 0.9 % Sodium Chloride 1,000 ML 999 ML IVCONT (16:41)
[2022-09-20] MEDS: iohexoL 350 MG/ML 100 ML INFUS..BTL IV (17:22)
[2022-09-20 17:54] VITALS: BP 112/74; PULSE 73; TEMP 36.5; O2SAT 100
--- NOTE | 2022-09-20 19:38 | PC.NURSE ---
IV line removed. Pt tolerated well. Discharge instructions reviewed with pt. Pt verbalizes understanding. Able to ambulate with a steady gait.
== END 2022-09-20 19:39 | disposition home or self-care (01) ==
PROVIDERS: Emergency Provider Internal Medicine
DX: N20.0 Calculus of kidney (principal); Z79.899 Other long term (current) drug therapy
CPT/HCPCS: 36415; 74177; 80048; 81001; 85025; 96361; 96374; 99284; J1885; Q9967

== ENCOUNTER 2023-03-28 20:55 | Emergency (ER) | payer MEDICARE, MEDICAID, SELFPAY ==
[2023-03-28 21:25] VITALS: BP 129/96; PULSE 98; RESP 18; TEMP 36.2; O2SAT 96; BMI 33.8
--- NOTE | 2023-03-29 00:17 | ED.SKABFB ---
HPI - Skin/Abscess/Foreign Bdy General Chief complaint: Skin/Abscess/Foreign Body Stated complaint: pain in both flanks Time Seen by Provider: 03/29/23 00:16 Source: patient Mode of arrival: ambulatory Limitations: no limitations History of Present Illness HPI narrative: Patient reports a small lump at right infrascapular area for last 2 days slightly tender denies any trauma no fever no skin redness Related Data Previous Rx's Medication Instructions Recorded ibuprofen 400 mg tablet 400 mg PO TID #10 tabs 08/27/22 ibuprofen 600 mg tablet 600 mg PO Q6H PRN pain #60 tabs 09/20/22 tamsulosin 0.4 mg capsule (Flomax) 0.4 mg PO DAILY #14 caps 09/20/22 Allergies Allergy/AdvReac Type Severity Reaction Status Date / Time No Known Allergies Allergy Verified 09/20/22 14:48 Review of Systems Review of Systems: Yes all other systems are reviewed and are negative PMFSH Past Medical History Medical History No known health problems Surgical History No history of previous surgery Social History Social History Alcohol intake: never Advance Directives: No Advance Directives Information Provided: No Physical Exam Vital Signs: Vital Signs: Last Vital Signs Temp 97.2 F 03/28/23 21:25 Pulse 98 03/28/23 21:25 Resp 18 03/28/23 21:25 BP 129/96 H 03/28/23 21:25 Pulse Ox 96 03/28/23 21:25 O2 Del Method Room Air 03/28/23 21:25 BMI result Body Mass Index 33.8 Back/Spine/Pelvis: Back/spine/pelvis image: 1. Small lipoma soft tissue swelling freely movable no erythema no signs of infection. Slightly tender Medical Decision Making Medical Decision Making MDM Narrative: Patient with small lipoma at right infrascapular area no signs of infection discharge patient advised to follow up surgeon Discharge Plan Discharge Clinical Impression: Lipoma of back Patient Disposition: Home, Self-Care Instructions: Lipoma (ED) Additional Instructions: Follow-up with surgeon if swelling gets bigger or painful Prescriptions: No Action ibuprofen 400 mg tablet 400 mg PO TID Qty: 10 0RF tamsulosin [Flomax] 0.4 mg capsule 0.4 mg PO DAILY Qty: 14 0RF ibuprofen 600 mg tablet 600 mg PO Q6H PRN (Reason: pain) Qty: 60 0RF Referrals: Danis Mosley MD [Physician] - 1 week
--- NOTE | 2023-05-13 08:19 | MHC.HEMONCMA ---
Received referral from Dr. Mosley for this patient, Dr. Montemayor reviewed. Called Maite [id number] in Dr. Mosley office, asked about referral to surgeon at [facility] to have mass excised and we hold referral till that is done, Maite will notify me when they are seeing [facility] so I can book him appt after that. Maite was waiting on appt date and time with [place].
== END 2023-03-29 00:37 | disposition home or self-care (01) ==
PROVIDERS: Emergency Provider Internal Medicine
DX: D17.1 Benign lipomatous neoplasm of skin and subcutaneous tissue of trunk (principal)
CPT/HCPCS: 99282

== ENCOUNTER 2023-04-08 12:56 | Outpatient (AMB) | payer MEDICARE, MEDICAID, SELFPAY ==
[2023-04-08 12:58] VITALS: BP 146/91; PULSE 69; BMI 30.9
--- NOTE | 2023-04-08 12:58 | MHC.OFFVIS ---
Intake Vital Signs 04/08/23 12:58 Height 6 ft Weight 228 lb BMI 30.9 BP 146/91 H Blood Pressure Location Rt brachial Position Sitting Pulse 69 Intake Visit Reasons: Lipoma of back,? skin abscess Intake Note: [place] [facility]up for lipoma of the back, ? skin abscess. Patient c/o; reports lipoma on the back, reports skin abscess on the back. Chief Steward/Stewardess Required: No Accompanied by: Self / Same As Patient Allergies No Known Allergies Allergy (Verified 04/08/23 13:06) Medication List - Last Reconciled 04/08/23 by Danis Mosley MD No Known Home Meds HPI Lipoma of back,? skin abscess HPI Details 43-year-old male referred for a lump on the back. He says that he just woke up with this 1 day about a month ago. This has not increased in size. He denies any drainage or skin changes. He describes some discomfort but not actual pain. [facility] Medical History (Updated 04/08/23 @ 13:20 by Danis Mosley MD) Lipoma of back No known health problems Social History Alcohol intake: never Review of Systems Const Denies chills and Denies fever(s) Card Denies chest pain, Denies dyspnea and Denies dyspnea on exertion Resp Denies cough, Denies dyspnea and Denies dyspnea on exertion GI Denies hematochezia and Denies change in bowel habits Denies hematuria and Denies difficulty urinating Musc Denies back pain and Denies limited range of motion Neuro Denies focal weakness and Denies convulsions Psych Denies depression and Denies mood swings Physical Exam Const General: comfortable and no acute distress Orientation/consciousness: patient oriented x3 Neck Neck: Yes no lymphadenopathy Resp Auscultation: clear to auscultation bilaterally Cardio Rhythm: regular rhythm GI Palpation (GI): Soft to palpation, nontender and no guarding Back/Spine/Pelvis Other: Lipomatous mass on the back, a little towards the right side of the mid back, about 3 cm in diameter, well-defined mobile Neuro General: patient oriented x3 Assessment & Plan Assessment & Plan (1) Lipoma of back: Code(s): D17.1 - Benign lipomatous neoplasm of skin and subcutaneous tissue of trunk Plan He understands the technique of excision. He is aware of the risks including but not limited to bleeding, infections and poor healing, as well as the benefits and alternatives. He has given consent. This will be done on his next visit here in the ER under local anesthesia. He understands what to expect postoperatively. Coding Level of Care Code New Pt Level 3 (83348) Diagnoses Lipoma of back D17.1
== END 2023-04-08 13:22 | disposition home or self-care (01) ==
PROVIDERS: Visit Provider Surgery
DX: D17.1 Benign lipomatous neoplasm of skin and subcutaneous tissue of trunk (principal)
CPT/HCPCS: 99203

== ENCOUNTER → 2023-04-08 12:56 | Outpatient (BNVA) | payer MEDICARE, MEDICAID, SELFPAY | PROVIDERS: Visit Provider Surgery | DX: D17.1 Benign lipomatous neoplasm of skin and subcutaneous tissue of trunk (principal) | CPT/HCPCS: 99202 ==

== ENCOUNTER 2023-04-28 11:07 | Outpatient (REF) | payer MEDICARE, MEDICAID, SELFPAY | END 2023-04-28 11:08 | disposition home or self-care (01) | LOC: HO.LNP 11:07 | PROVIDERS: Visit Provider Surgery | DX: D17.1 Benign lipomatous neoplasm of skin and subcutaneous tissue of trunk (principal) | CPT/HCPCS: 11604; 88304; 88307; 88341; 88342; 88377 ==

== ENCOUNTER 2023-04-28 11:07 | Outpatient (AMB) | payer MEDICARE, MEDICAID, SELFPAY ==
[2023-04-28 11:23] VITALS: BP 134/80; PULSE 70
--- NOTE | 2023-04-28 11:23 | A.OFFVIS_ITS ---
Intake Vital Signs 04/28/23 11:23 Height 6 ft BP 134/80 Blood Pressure Location Rt brachial Position Sitting Pulse 70 Intake Visit Reasons: Exc lipoma of back Intake Note: This patient presents for in-office procedure for excision lipoma of back. Patient c/o; reports no changes. Pillowcase Maker Required: No Allergies No Known Allergies Allergy (Verified 04/28/23 11:24) HPI Exc lipoma of back HPI Details He is here for excision of a lipoma from the back. [facility] Medical History (Updated 04/08/23 @ 13:20 by Danis Mosley MD) Lipoma of back No known health problems Surgical History (Updated 04/28/23 @ 11:25 by DARBY Schmid) History of surgical procedure (~04/28/23) Social History Alcohol intake: never Office Procedures Excision Details: He was in prone position. The area of the lipomas prepped and draped. Lidocaine 1% was used for local anesthesia. I made an incision on the skin overlying the lipoma using blade 15. This carried down through the full- thickness of the skin and subcutaneous fat until the lipomas visualized. The lipoma was actually intramuscular so we had to dissect through muscle layers to visualize this. The lipoma sharply dissected off of the rest of the muscle tissue using Metzenbaum scissors until this was delivered and sent as a specimen. The lipoma was about 2.3 cm in aggregate size. The incision was closed with full-thickness nylon 3-0 interrupted sutures. Dressings were applied. The procedure was completed He tolerated procedure well. There were no immediate complications. Estimated blood loss was minimal. He was given wound care instructions. He can take Tylenol and ibuprofen for pain. 66586-hvsys/arms/legs 2.1-3cm Procedure code (CPT) selection complete Assessment & Plan Assessment & Plan (1) Lipoma of back: Code(s): D17.1 - Benign lipomatous neoplasm of skin and subcutaneous tissue of trunk Plan: Excision under local anesthesia was done. The lipoma was intramuscular. He was given wound care instructions. He can take Tylenol ibuprofen for the pain. Will be seen in the office for postop visit. Coding Level of Care Code Procedure Only Diagnoses Lipoma of back D17.1 CPT Codes Trunk/Arms/Legs - CPT: 48899-otmmk/arms/legs 2.1-3cm ([id number])
== END 2023-04-28 12:08 | disposition home or self-care (01) ==
PROVIDERS: Visit Provider Surgery
DX: C49.6 Malignant neoplasm of connective and soft tissue of trunk, unspecified (principal)
CPT/HCPCS: 11604

== ENCOUNTER 2023-05-12 11:38 | Outpatient (AMB) | payer MEDICARE, MEDICAID, SELFPAY ==
--- NOTE | 2023-05-12 11:40 | MHC.OFFVIS ---
Intake Vital Signs 05/12/23 11:48 Height 6 ft Weight 228 lb BMI 30.9 BP 132/84 Blood Pressure Location Rt brachial Position Sitting Pulse 86 Intake Visit Reasons: Follow Up Exc lipoma of the back Intake Note: This patient presents for a post-op assessment status post excision of lipoma of the back. Patient c/o; reports no complaints at this time. 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 He is here for postop visit. He denies any complaints with regards to the excision site. He says he feels well overall. [facility] Medical History (Updated 05/12/23 @ 11:46 by Danis Mosley MD) Liposarcoma Lipoma of back No known health problems Surgical History History of surgical procedure (~04/28/23) Social History Alcohol intake: never Physical Exam Back/Spine/Pelvis Other: Excision site is well healed, not infected, sutures intact Assessment & Plan Assessment & Plan (1) Liposarcoma: Code(s): C49.9 - Malignant neoplasm of connective and soft tissue, unspecified Plan: He had undergone excision of appeared to be a lipoma from the back. 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 I told him that we will need to be referred to a surgical oncologist for wider excision which may include some muscles of the back. I will also refer him to the medical oncologist. His incision is otherwise well healed. I removed all his sutures. He understands the plan well. He is comfortable with this. I explained to him that he is free to call the office if he needs navigation down the line. Coding Level of Care Code Est Pt Level 3 (93890) Diagnoses Liposarcoma C49.9
[2023-05-12 11:48] VITALS: BP 132/84; PULSE 86; BMI 30.9
== END 2023-05-12 11:56 | disposition home or self-care (01) ==
PROVIDERS: Visit Provider Surgery
DX: C49.9 Malignant neoplasm of connective and soft tissue, unspecified (principal)
CPT/HCPCS: 99213

== ENCOUNTER → 2023-05-12 11:38 | Outpatient (BNVA) | payer MEDICARE, MEDICAID, SELFPAY | PROVIDERS: Visit Provider Surgery | DX: Z48.3 Aftercare following surgery for neoplasm (principal); Z87.2 Personal history of diseases of the skin and subcutaneous tissue | CPT/HCPCS: 99212 ==

== ENCOUNTER 2023-05-26 10:44 | Outpatient (AMB) | payer MEDICARE, MEDICAID, SELFPAY ==
--- NOTE | 2023-05-26 11:04 | MHC.OFFVIS ---
Intake Vital Signs 05/26/23 11:12 Height 6 ft BP 132/82 Blood Pressure Location Rt brachial Position Sitting Pulse 76 Intake Visit Reasons: ? fluid collection vs. new growth Intake Note: This patient presents for an assessment for question of fluid collection vs. new growth. Patient c/o; reports extreme tiredness, reports recurrent lump right upper back, ? new growth. Roadside Mechanic Required: No Accompanied by: Self / Same As Patient Allergies No Known Allergies Allergy (Verified 05/26/23 11:14) HPI ? fluid collection vs. new growth HPI Details He had undergone excision of a mass from the back which turned out to be a sarcoma. I had arranged for him to be seen by a surgical oncologist who he is scheduled to go to next week. However, he wanted the excision site checked because of what he says was a new swelling that has been gradually noticed over the past week. Denies any significant pain. Denies any discharge. [facility] Medical History (Reviewed 05/26/23 @ 11: by Danis Mosley MD) Liposarcoma Lipoma of back No known health problems Surgical History (Reviewed 05/26/23 @ 11: by Danis Mosley MD) History of surgical procedure (~04/28/23) Social History (Reviewed 05/26/23 @ 11: by Danis Mosley MD) Alcohol intake: never Review of Systems Const Denies chills and Denies fever(s) Card Denies chest pain, Denies dyspnea and Denies dyspnea on exertion Resp Denies cough, Denies dyspnea and Denies dyspnea on exertion GI Denies hematochezia and Denies change in bowel habits Denies hematuria and Denies difficulty urinating Musc Denies back pain and Denies limited range of motion Neuro Denies focal weakness and Denies convulsions Psych Denies depression and Denies mood swings Physical Exam Vital Signs: Last Vital Signs Pulse 76 05/26/23 11:12 BP 132/82 05/26/23 11:12 Const General: comfortable and no acute distress Resp Effort & Inspection: normal respiratory effort Back/Spine/Pelvis Other: Soft, well-defined mass underneath excision site on the back, appears to be a seroma versus hematoma Assessment & Plan Assessment & Plan (1) Liposarcoma: Code(s): C49.9 - Malignant neoplasm of connective and soft tissue, unspecified Plan: He had a mass excised from the back turned out to be a liposarcoma. He is waiting to be seen by the surgical oncologist next week. He wanted to be seen today because of what he described as a new swelling on the area. This appears to be postop seroma versus a hematoma. I told him to do warm compresses on the area. I would leave this alone until he seen by the oncologist next week. This appears to be not infected. Coding Level of Care Code Global (55929) Diagnoses Liposarcoma C49.9
[2023-05-26 11:12] VITALS: BP 132/82; PULSE 76
== END 2023-05-26 11:34 | disposition home or self-care (01) ==
PROVIDERS: Visit Provider Surgery
DX: C49.9 Malignant neoplasm of connective and soft tissue, unspecified (principal)
CPT/HCPCS: 99024

== ENCOUNTER → 2023-05-26 10:44 | Outpatient (BNVA) | payer MEDICARE, MEDICAID, SELFPAY | PROVIDERS: Visit Provider Surgery ==

== ENCOUNTER 2023-10-22 10:04 | Outpatient (AMB) | payer MEDICARE, MEDICAID, SELFPAY ==
--- NOTE | 2023-10-22 10:18 | A.OFFPC_ITS ---
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 Transferring care from unknown. Medical records have not been requested and have not received. Philatelic Consultant Required: No Women'S Swim Coach: Not Required per policy Accompanied by: Self / Same As Patient Allergies No Known Allergies Allergy (Verified 10/22/23 11:01) Medication List - Last Reconciled 10/22/23 by Tutu Baez MD enoxaparin 40 mg subcut DAILY ibuprofen 400 mg PO Q8H PRN oxycodone 5 mg PO Q8H PRN Tobacco use date assessed: 10/22/23 Dental Screening Dental Screen Date: 10/22/23 Did you have a dental visit in the last 12 months?: No Did you have a dental problem in the last 6 months where you did not have access to dental care?: No Was dental information given to patient?: No HPI 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 Sultana at [facility] back in May 2023 and was sent for additional work ups to determine the extent and potential spread of the lesion He eventually underwent radiation therapy for about 5 weeks and was referred out to [facility] in [place] He just underwent surgical excision of the mass on his right infrascapular area a couple of days ago on 10/20/2023 and presently still has a PHOEBE-drain in place Recalls being advised that the surgeon took out the tumor and some adjacent muscles but did not have to resect any of his ribs so far States that he is not in any significant pain; has some Oxycodone to take as needed but states that he has not had to take too many of them He has a follow up appointment in [place] on 11/02/2023 and with oncology at [facility] on 11/07/2023 Patient states that aside from the liposarcoma that was diagnosed recently, he has no significant medical issues Relates (+) Hx of depression but has not needed to take any Rx He presently denies any fever, headaches or dizziness Denies any chest pains, no SOB No nausea/vomiting, no abdominal pain No change in bowel habits noted [facility] Medical History (Updated 10/22/23 @ 11:02 by Tutu Baez MD) Liposarcoma Surgical History History of surgical procedure (~04/28/23) Social History Housing: Apartment Alcohol intake: never Patient Tobacco Use Status: Never used Tobacco e-Cigarette/Vaping Use: Never Used Second Hand Smoke Exposure: No service: No Current occupational status: disabled Cognitive needs: No Hearing needs: No Vision needs: No Questionnaire PHQ-9 Over the last 2 weeks, how often have you been bothered by any of the following problems? 1. Little interest or pleasure in doing things: not at all 2. Feeling down, depressed, or hopeless: not at all 3. Trouble falling or staying asleep, or sleeping too much: not at all 4. Feeling tired or having little energy: not at all 5. Poor appetite or overeating: not at all 6. Feeling bad about yourself - or that you are a failure or have let yourself or your family down: not at all 7. Trouble concentrating on things, such as reading the newspaper or watching television: not at all 8. Moving or speaking so slowly that other people could have noticed. Or the opposite - being so fidgety or restless that you have been moving around a lot more than usual: not at all 9. Thoughts that you would be better off or of hurting yourself in some way: not at all Total score: 0 Depression Screening Interpretation: Negative Depression Screening Done: Yes 34217 - PHQ-9 Billing: Yes Source: Developed by Drs. Silvano Ambrocio, Maikol Vasquez and colleagues, with an educational jaskaran from [employer]. Thrive Questionnaire Date Thrive assessed: 10/22/23 I am a: Patient What is your living situation today?: I have a steady place to live Within the past 12 months, did the food you bought not last and you didn't have the money to get more?: Never true Within the past 12 months, did you worry whether your food would run out before you got money to buy more?: Never true Do you have trouble paying for medicines?: No Do you have trouble getting transportation to medical appointments?: No Do you have trouble paying your heating and electricity bill?: No Do you have trouble taking care of your child, family member or friend?: No Do you have trouble with day-to-day activities such as bathing, preparing meals, shopping, managing finances, etc.?: No Are you currently unemployed and looking for a job?: No Are you interested in more education?: No Currently or been in a relationship where the following occur: no concerns reported THRIVE Score: 0 AUDIT C Alcohol Use Questionnaire (AUDIT-C) 1. How often do you have a drink containing alcohol?: Never Total Score: 0 Score Reviewed/Action Taken: Yes WANDA-7 AMB Questionnaire WANDA-7 Date WANDA - 7 assessed: 10/22/23 Feeling nervous, anxious, or on edge: 0 = Not at all Not being able to stop or control worryin = Not at all Worrying too much about different things: 0 = Not at all Trouble relaxin = Not at all Being so restless that it is hard to sit still: 0 = Not at all Becoming easily annoyed or irritable: 0 = Not at all Feeling afraid as if something awful might happen: 0 = Not at all Total WANDA-7 score (0-4 normal; 5-9 mild; 10-14 moderate; 15-21 severe): 0 Source: Developed by Terese Smalls Kurt Kroenke and colleagues, with an educational jaskaran from [employer]. Review of Systems Const Denies chills, Denies fatigue, Denies fever(s) and Denies headache(s) ENT Denies dysphagia, Denies dizziness, Denies otalgia, Denies headache(s), Denies neck pain, Denies odynophagia and Denies sore throat Card Denies chest pain, Denies palpitations and Denies dyspnea Resp Denies cough and Denies dyspnea GI Denies abdominal pain, Denies constipation, Denies dysphagia, Denies heartburn, Denies diarrhea, Denies nausea, Denies odynophagia and Denies vomiting Denies dysuria and Denies nocturia Musc Denies neck pain Skin/Breast Details: (+) surgical dressing in place over the right infrascapular area, with (+) PHOEBE- drain Denies rash Neuro Denies dizziness and Denies headache(s) Endo Denies fatigue and Denies palpitations Physical exam (Primary Care) Vital Signs: Last Vital Signs Pulse 83 10/22/23 10:20 BP 110/70 10/22/23 10:20 Pulse Ox 98 10/22/23 10:20 Oxygen Delivery Method Room Air 10/22/23 10:20 BMI result Body Mass Index 29.6 Tobacco/Smoking Status: Tobacco use Status Tobacco use date assessed 10/22/23 10/22/23 10:34 Patient Tobacco Use Status Never used Tobacco 10/22/23 10:34 e-Cigarette/Vaping Use Never Used 10/22/23 10:34 PHQ-9: PHQ-9 Score PHQ-9: Total score 0 10/22/23 12:08 Depression Screening Interpretation: Negative Thrive Assessment: Date of Thrive Assessment Date Thrive assessed 10/22/23 10/22/23 10:34 Currently or been in a relationship where the following occur: no concerns reported Const General: no acute distress and alert HENMT Ears: TM's normal bilaterally and EAC's normal Throat: Yes posterior oropharynx normal and Yes tonsils normal (no TP congestion) Neck Neck: Yes no lymphadenopathy and Yes supple Resp Auscultation: clear to auscultation bilaterally, no rales and no wheezes Cardio Rate: regular rate Rhythm: regular rhythm Heart sounds: no murmurs GI Palpation (GI): Soft to palpation and nontender Auscultation: normal bowel sounds Back/Spine/Pelvis Other: (+) surgical dressing in place over the right infrascapular area; (+) PHOEBE drain in place Skin General skin exam: no rashes or lesions noted Extrem General: Yes no clubbing, cyanosis or edema Assessment and Plan Assessment & Plan (1) Liposarcoma: Code(s): C49.9 - Malignant neoplasm of connective and soft tissue, unspecified Plan: S/P surgical excision (at [facility] in [place]) on 10/20/2023 He also received radiation Tx x 5 weeks at [facility] a couple of months ago Further treatments will be determined once the full pathology report is available and will also depend on follow up imaging studies and work ups Follow up with surgical oncology as scheduled Plan Follow up in 3 months Coding Level of Care Code New Pt Level 3 (52420) Diagnoses Liposarcoma C49.9
[2023-10-22 10:20] VITALS: BP 110/70; PULSE 83; O2SAT 98; BMI 29.6
== END 2023-10-22 11:13 | disposition home or self-care (01) ==
PROVIDERS: PCP Internal Medicine; Visit Provider Internal Medicine
DX: C49.9 Malignant neoplasm of connective and soft tissue, unspecified (principal)
CPT/HCPCS: 99203

== ENCOUNTER 2023-11-24 15:31 | Outpatient (AMB) | payer MEDICARE, MEDICAID, SELFPAY ==
[2023-11-24 15:33] VITALS: BP 114/80; PULSE 89; O2SAT 98; BMI 30.7
--- NOTE | 2023-11-24 15:33 | MHC.PC.OV ---
Vital Signs 11/24/23 15:33 Height 5 ft 9.5 in Weight 211 lb 0.6 oz BMI 30.7 BP 114/80 Blood Pressure Location Lt brachial Position Sitting Pulse 89 Pulse Source Pulse Oximeter Pulse Oximetry (%) 98 Oxygen Delivery Method Room Air Intake Visit Reasons: STITCHES AND HIS SCAR Intake Note: pt states stitches and drainage on wound located on back. Hand Edge Bander Required: No Allergies No Known Allergies Allergy (Verified 11/25/23 04:12) Medication List - Last Reconciled 11/25/23 by Tutu Baez MD enoxaparin 40 mg subcut DAILY ibuprofen 400 mg PO Q8H PRN oxycodone 5 mg PO Q8H PRN Tobacco use date assessed: 11/24/23 Dental Screening Dental Screen Date: 11/24/23 Did you have a dental visit in the last 12 months?: No Did you have a dental problem in the last 6 months where you did not have access to dental care?: No HPI STITCHES AND HIS SCAR HPI Details Patient comes in today mainly to have the draining surgical wound on his right upper back checked out and also to help determine if the stitches there can be removed now States that the stitches have been there for at least 2 weeks He initially underwent surgical excision of a mass over his right infrascapular area last month on 10/20/2023 - recalls being advised that the surgeon excised the tumor that was present as well as most of the adjacent muscles over his back He went back to [place] on 11/02/2023 for his follow up and the PHOEBE drain was removed and that was when these stitches that he has now were placed; the wound on his back was also dressed and packed and states that visiting nurses have been changing his dressings and wound packing regularly since Patient states that other than the draining surgical wound over his right upper back, he feels okay overall and denies being in any increased pain at present He denies any fever; denies any headaches or dizziness No other acute complaints or symptoms are noted at present [facility] Medical History Liposarcoma Surgical History (Updated 11/25/23 @ 04:36 by Tutu Baez MD) H/O excision of mass History of surgical procedure (~04/28/23) Social History Housing: Apartment Alcohol intake: never Patient Tobacco Use Status: Never used Tobacco e-Cigarette/Vaping Use: Never Used Second Hand Smoke Exposure: No service: No Current occupational status: disabled Cognitive needs: No Hearing needs: No Vision needs: No Questionnaire PHQ-9 Over the last 2 weeks, how often have you been bothered by any of the following problems? Depression Screening Interpretation: Negative Depression Screening Done: Yes Source: Developed by Drs. Silvano Ambrocio, Terese Rogel, Maikol Huang and colleagues, with an educational jaskaran from [employer]. Thrive Questionnaire Date Thrive assessed: 11/24/23 I am a: Patient What is your living situation today?: I have a steady place to live Within the past 12 months, did the food you bought not last and you didn't have the money to get more?: Never true Within the past 12 months, did you worry whether your food would run out before you got money to buy more?: Never true Do you have trouble paying for medicines?: No Do you have trouble getting transportation to medical appointments?: No Do you have trouble paying your heating and electricity bill?: No Do you have trouble taking care of your child, family member or friend?: No Do you have trouble with day-to-day activities such as bathing, preparing meals, shopping, managing finances, etc.?: No Are you currently unemployed and looking for a job?: No Are you interested in more education?: No Please select the resources that you would like help with: None Currently or been in a relationship where the following occur: no concerns reported THRIVE Score: 0 AUDIT C Alcohol Use Questionnaire (AUDIT-C) 1. How often do you have a drink containing alcohol?: Never 3. How often do you have six or more drinks on one occasion?: Never Total Score: 0 Score Reviewed/Action Taken: Yes WANDA-7 AMB Questionnaire WANDA-7 Date WANDA - 7 assessed: 10/22/23 Source: Developed by Drs. Silvano Ambrocio, Terese Rogel, Maikol Huang and colleagues, with an educational jaskaran from [employer]. Review of Systems Const Denies chills, Denies fatigue, Denies fever(s) and Denies headache(s) ENT Denies dysphagia, Denies dizziness, Denies headache(s), Denies neck pain and Denies sore throat Card Denies chest pain, Denies palpitations and Denies dyspnea Resp Denies cough and Denies dyspnea GI Denies abdominal pain, Denies dysphagia, Denies diarrhea, Denies nausea and Denies vomiting Denies dysuria and Denies nocturia Musc Denies neck pain Skin/Breast Details: (+) surgical dressing in place over the right infrascapular area - dressings appear slightly soaked with drainage Denies rash Neuro Denies dizziness and Denies headache(s) Endo Denies fatigue and Denies palpitations Physical exam (Primary Care) Vital Signs: Last Vital Signs Pulse 89 11/24/23 15:33 BP 114/80 11/24/23 15:33 Pulse Ox 98 11/24/23 15:33 Oxygen Delivery Method Room Air 11/24/23 15:33 BMI result Body Mass Index 30.7 Tobacco/Smoking Status: Tobacco use Status Tobacco use date assessed 11/24/23 11/24/23 15:34 Patient Tobacco Use Status Never used Tobacco 11/24/23 15:34 e-Cigarette/Vaping Use Never Used 11/24/23 15:34 Depression Screening Interpretation: Negative Thrive Assessment: Date of Thrive Assessment Date Thrive assessed 11/24/23 11/24/23 15:34 Currently or been in a relationship where the following occur: no concerns reported Const General: no acute distress and alert HENMT Throat: Yes posterior oropharynx normal and Yes tonsils normal (no TP congestion) Neck Neck: Yes no lymphadenopathy and Yes supple Resp Auscultation: clear to auscultation bilaterally, no rales and no wheezes Cardio Rate: regular rate Rhythm: regular rhythm Heart sounds: no murmurs GI Palpation (GI): Soft to palpation and nontender Auscultation: normal bowel sounds Back/Spine/Pelvis Other: (+) surgical dressing in place over the right infrascapular area - dressings appear partially soaked with drainage; wound appear healed on exam, with sutures in place although there is still a couple of open wounds at the center of the long horizontal surgical incision and there is a small makeshift drain in place, with a minimal amount of yellowish drainage still present Extrem General: Yes no clubbing, cyanosis or edema Assessment and Plan Assessment & Plan (1) Liposarcoma: Code(s): C49.9 - Malignant neoplasm of connective and soft tissue, unspecified Plan: S/P surgical excision (at [facility] in [place]) on 10/20/2023 - 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 He went back to [facility] for follow up a couple of weeks ago on 11/02/2023 and had the PHOEBE drain removed Patient also received radiation Tx x 5 weeks at [facility] about 2 to 3 months ago Have advised patient that the wound on his right upper back appears to be healing well although he still has a small draining opening at the center of his incision Have advised that we can try to remove the sutures here if he wants to but as there is still the open and draining wound, I would prefer that he has this done in a more appropriately equipped setting since we do not even have the correct type of dressings that we can use to properly repack and dress a large surgical wound that he has Patient states that he was advised that they can get him set up at [facility] to have the wound checked and sutures removed if his PCP cannot do it and states that he prefers to get this done at [facility] We have cleaned and repacked and redressed his surgical wound and have advised that he should have the dressing changed again when it gets soiled Plan Follow up as scheduled in January 2024 Coding Level of Care Code Est Pt Level 3 (13590) Diagnoses Liposarcoma C49.9 Time Spent (min) 20 Comment to clean and redress and repack wound
== END 2023-11-24 17:32 | disposition home or self-care (01) ==
PROVIDERS: PCP Internal Medicine; Visit Provider Internal Medicine
DX: C49.9 Malignant neoplasm of connective and soft tissue, unspecified (principal)
CPT/HCPCS: 99213

== ENCOUNTER 2024-02-07 13:09 | Outpatient (AMB) | payer MEDICARE, MEDICAID, SELFPAY ==
[2024-02-07 13:10] VITALS: BP 114/78; PULSE 81; O2SAT 97; BMI 32.0
--- NOTE | 2024-02-07 13:10 | A.OFFPC_ITS ---
Vital Signs 02/07/24 13:10 Height 5 ft 9.5 in Weight 220 lb 0.1 oz BMI 32.0 BP 114/78 Blood Pressure Location Lt brachial Position Sitting Pulse 81 Pulse Source Pulse Oximeter Pulse Oximetry (%) 97 Oxygen Delivery Method Room Air Intake Visit Reasons: 3mth f/u Intake Note: Patient is here to follow up on 3 months Nursery Supervisor Required: No Allergies No Known Allergies Allergy (Verified 02/07/24 13:37) Medication List - Last Reconciled 02/07/24 by Tutu Baez MD No Known Home Meds Tobacco use date assessed: 11/24/23 Dental Screening Dental Screen Date: 11/24/23 Did you have a dental visit in the last 12 months?: Yes Did you have a dental problem in the last 6 months where you did not have access to dental care?: No Was dental information given to patient?: Patient has dentist HPI 3mth f/u HPI Details Patient comes in today for his follow up visit States that the previous wound on the right side of his back has healed up a lot since he was last here a couple of months ago and is now almost closed up completely States that he feels okay and otherwise has no other acute issues He denies any headaches or dizziness Denies any chest pains, no SOB No nausea/vomiting, no abdominal pain No change in bowel habits noted and states that he is currently no longer taking any prescription Rx regularly [facility] Medical History Liposarcoma Surgical History H/O excision of mass History of surgical procedure (~04/28/23) Social History Housing: Apartment Alcohol intake: never Patient Tobacco Use Status: Never used Tobacco e-Cigarette/Vaping Use: Never Used Second Hand Smoke Exposure: No service: No Current occupational status: disabled Cognitive needs: No Hearing needs: No Vision needs: No Questionnaire PHQ-9 Over the last 2 weeks, how often have you been bothered by any of the following problems? 1. Little interest or pleasure in doing things: not at all 2. Feeling down, depressed, or hopeless: not at all 3. Trouble falling or staying asleep, or sleeping too much: not at all 4. Feeling tired or having little energy: not at all 5. Poor appetite or overeating: not at all 6. Feeling bad about yourself - or that you are a failure or have let yourself or your family down: not at all 7. Trouble concentrating on things, such as reading the newspaper or watching television: not at all 8. Moving or speaking so slowly that other people could have noticed. Or the opposite - being so fidgety or restless that you have been moving around a lot more than usual: not at all 9. Thoughts that you would be better off or of hurting yourself in some way: not at all Total score: 0 Depression Screening Interpretation: Negative Depression Screening Done: Yes 15393 - PHQ-9 Billing: Yes Source: Developed by Drs. Silvano Ambrocio, Terese Rogel, Maikol Huang and colleagues, with an educational jaskaran from [employer]. Thrive Questionnaire Date Thrive assessed: 11/24/23 I am a: Patient What is your living situation today?: I have a steady place to live Within the past 12 months, did the food you bought not last and you didn't have the money to get more?: Never true Within the past 12 months, did you worry whether your food would run out before you got money to buy more?: Never true Do you have trouble paying for medicines?: No Do you have trouble getting transportation to medical appointments?: No Do you have trouble paying your heating and electricity bill?: No Do you have trouble taking care of your child, family member or friend?: No Do you have trouble with day-to-day activities such as bathing, preparing meals, shopping, managing finances, etc.?: No Are you currently unemployed and looking for a job?: No Are you interested in more education?: No Please select the resources that you would like help with: None Currently or been in a relationship where the following occur: no concerns reported THRIVE Score: 0 AUDIT C Alcohol Use Questionnaire (AUDIT-C) 1. How often do you have a drink containing alcohol?: Never 3. How often do you have six or more drinks on one occasion?: Never Total Score: 0 Score Reviewed/Action Taken: Yes WANDA-7 AMB Questionnaire WANDA-7 Date WANDA - 7 assessed: 10/22/23 Source: Developed by Drs. Silvano Ambrocio, Terese Rogel, Maikol Huang and colleagues, with an educational jaskaran from [employer]. Review of Systems Const Denies chills, Denies fatigue, Denies fever(s) and Denies headache(s) ENT Denies dysphagia, Denies dizziness, Denies headache(s), Denies neck pain, Denies odynophagia and Denies sore throat Card Denies chest pain, Denies palpitations and Denies dyspnea Resp Denies cough and Denies dyspnea GI Denies abdominal pain, Denies constipation, Denies dysphagia, Denies heartburn, Denies diarrhea, Denies nausea, Denies odynophagia and Denies vomiting Denies dysuria, Denies nocturia and Denies urinary frequency Musc Denies back pain and Denies neck pain Skin/Breast Details: (+) healing wound near the right infrascapular area Denies rash Neuro Denies dizziness and Denies headache(s) Endo Denies fatigue and Denies palpitations Physical exam (Primary Care) Vital Signs: Last Vital Signs Pulse 81 02/07/24 13:10 BP 114/78 02/07/24 13:10 Pulse Ox 97 02/07/24 13:10 Oxygen Delivery Method Room Air 02/07/24 13:10 BMI result Body Mass Index 32.0 Tobacco/Smoking Status: Tobacco use Status Tobacco use date assessed 11/24/23 02/07/24 13:11 Patient Tobacco Use Status Never used Tobacco 02/07/24 13:11 e-Cigarette/Vaping Use Never Used 02/07/24 13:11 Depression Screening Interpretation: Negative Thrive Assessment: Date of Thrive Assessment Date Thrive assessed 11/24/23 02/07/24 13:11 Currently or been in a relationship where the following occur: no concerns reported Const General: no acute distress and alert HENMT Throat: Yes posterior oropharynx normal and Yes tonsils normal (no TP congestion) Neck Neck: Yes no lymphadenopathy and Yes supple Thyroid: Thyroid normal Resp Auscultation: clear to auscultation bilaterally, no rales and no wheezes Cardio Rate: regular rate Rhythm: regular rhythm Heart sounds: no murmurs GI Palpation (GI): Soft to palpation and nontender Auscultation: normal bowel sounds General: Yes no CVA tenderness Back/Spine/Pelvis Other: (+) small wound near the right infrascapular area that appears to be healing up on exam, with no active drainage noted Back: no CVA tenderness Thoracic/Lumbar Spine: No lumbar spinal tenderness Skin Rashes: no rashes Extrem General: Yes no clubbing, cyanosis or edema Assessment and Plan Assessment & Plan (1) Liposarcoma: Code(s): C49.9 - Malignant neoplasm of connective and soft tissue, unspecified Plan: S/P surgical excision (at [facility] [place]) on 10/20/2023 - 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 Patient also received radiation Tx x 5 weeks at [facility] earlier this year He still has an open and draining wound on his right upper back when he was last seen in November 2023 - states that the wound has improved significantly since and is now almost healed up completely Follow up with oncology as scheduled for continuing surveillance Plan To return in 6 months for his annual physical examination Have reminded patient to get his labs done BEFORE he comes in for his annual physical in a few months Orders: Orders Lipid Panel 6 Months E78.00 - Pure hypercholesterolemia, unspecified, Z00.00 - Encounter for general adult medical examination without abnormal findings UA CC w/rflx Micro + Cult 6 Months R30.0 - Dysuria, Z00.00 - Encounter for general adult medical examination without abnormal findings Complete Blood Count Auto Diff 6 Months D64.9 - Anemia, unspecified, Z00.00 - Encounter for general adult medical examination without abnormal findings Comprehensive [place]. Panel Fast 6 Months E78.00 - Pure hypercholesterolemia, unspecified, Z00.00 - Encounter for general adult medical examination without abnormal findings TSH reflex Free T4 6 Months E78.00 - Pure hypercholesterolemia, unspecified, Z00.00 - Encounter for general adult medical examination without abnormal findings Vitamin D 25-OH Total 6 Months E55.9 - Vitamin D deficiency, unspecified, Z00.00 - Encounter for general adult medical examination without abnormal findings Coding Level of Care Code Est Pt Level 3 (89869) Diagnoses Liposarcoma C49.9
== END 2024-02-07 13:48 | disposition home or self-care (01) ==
PROVIDERS: PCP Internal Medicine; Visit Provider Internal Medicine
DX: C49.9 Malignant neoplasm of connective and soft tissue, unspecified (principal)
CPT/HCPCS: 99213

== ENCOUNTER 2024-05-17 13:14 | Emergency (ER) | payer MEDICARE, MEDICAID, SELFPAY ==
--- NOTE | ~2024-05-17 | CT_ITS ---
EXAMINATION: CT ABDOMEN AND PELVIS WITH CONTRAST CLINICAL INFORMATION: Abdominal pain COMPARISON: Ultrasound abdomen earlier today, CT abdomen pelvis 09/20/2022 TECHNIQUE: Multidetector volumetric images were obtained from the superior aspect of the liver through the pubic symphysis following administration 85 mL of Omnipaque 350 intravenous contrast. Sagittal and coronal reformatted images were obtained on the technologist's workstation. Oral contrast: No This CT examination was performed using dose optimization techniques as appropriate, variously including the following: *Automated exposure control *Adjustment of mA and/or kV according to patient size (this includes techniques or standardized protocols for targeted exams where dose is matched to indication/reason for exam; i.e. extremities or head) *Use of iterative reconstruction technique DLP: 684 mGy-cm FINDINGS: LUNG BASES: The visualized lung bases are unremarkable. LIVER, GALLBLADDER, AND BILIARY TREE: The liver is mildly enlarged with decreased attenuation related to hepatic steatosis. Again seen are a couple of geographic tiny areas of decreased attenuation which could represent focal fat. A 1.1 cm cyst is noted in the left lobe of the liver as seen on prior ultrasound. No concerning solid focal hepatic lesion or biliary ductal dilatation is present. The gallbladder is unremarkable with no evidence of radiopaque gallstones, gallbladder wall thickening, or obvious pericholecystic inflammatory changes. PANCREAS: Unremarkable. SPLEEN: Unremarkable aside from the presence of some tiny hypodensities unchanged from prior. ADRENAL GLANDS: Unremarkable. KIDNEYS AND URETERS: The kidneys are normal in size, shape, and attenuation. Tiny hypodensities in the kidney are again seen and unchanged, likely benign simple cysts which need no follow-up Tiny punctate 2 mm nonobstructing mid left calculus unchanged. No hydronephrosis, hydroureter, or additional calculi seen. No perinephric stranding. BLADDER: Empty and poorly evaluated GASTROINTESTINAL TRACT: The small and large bowel are unremarkable aside from colonic diverticula without diverticulitis. The appendix is unremarkable. ABDOMINAL WALL: No significant hernia is appreciated. LYMPH NODES: Normal. VASCULAR: Unremarkable. PELVIC VISCERA: Mildly prominent prostate. Normal seminal vesicles OSSEOUS STRUCTURES: Unremarkable. CT/CT abdomen pelvis w IV con IMPRESSION: 1. A cause for the patient's abdominal pain has not been found. 2. Incidental note made of mildly enlarged fatty liver, benign hepatic cyst, tiny nonobstructing left renal calculus and colonic diverticulosis without diverticulitis. Fleischner guidelines were followed. Electronically signed by: Saqib Turcios MD 05/17/2024 07:07 PM EDT RP
--- NOTE | ~2024-05-17 | US_ITS ---
EXAMINATION: US ABDOMEN LIMITED CLINICAL INFORMATION: Right upper quadrant pain. COMPARISON: CT scan abdomen pelvis September 20, 2022 TECHNIQUE: Real-time imaging of the right upper quadrant abdominal viscera. Color Doppler exam was used FINDINGS: PANCREAS: Normal. LIVER: There is increased echogenicity of liver parenchyma suggesting fatty change. The liver is normal in size. The liver contour is normal. No suspicious focal hepatic lesion. There is a 1 cm septated cyst left lobe of liver. There is no intrahepatic biliary duct dilatation seen. GALLBLADDER: Normal. The gallbladder is physiologically distended without evidence of stones, sludge, polyps, wall thickening or pericholecystic fluid. COMMON BILE DUCT: Normal in caliber measuring 0.7cm in diameter. RIGHT KIDNEY: Normal. No hydronephrosis. No renal calculi or focal parenchymal lesions. The kidney measures 10.3 cm in maximum dimension. FREE FLUID: None. US/US abdomen limited IMPRESSION: 1. No acute abnormality. 2. Diffuse fatty change of liver. Electronically signed by: Ramon Corbett MD 05/17/2024 03:27 PM EDT
[2024-05-17 13:16] VITALS: BP 145/88; PULSE 94; RESP 16; TEMP 2.4; TEMP 36.3; BMI 32.3
--- NOTE | 2024-05-17 13:25 | ED.GENADULT ---
HPI - General Adult General Chief complaint: Abdominal Pain Stated complaint: upper abd pain Time Seen by Provider: 05/17/24 15:41 Source: patient Mode of arrival: ambulatory Limitations: no limitations History of Present Illness ED Provider: oswaldo VELASQUEZ HPI narrative: 44-year-old male history of skin back sarcoma, GERD, presents to ED for right upper abdominal/epigastric pain after eating food. Patient also states some mild acids sharp stabbing pain. Patient denies any weight loss or constipation. Patient states slight nausea but no vomiting. Patient states having symptoms for one week. patient states normal bowel symptoms and no genital urinary symptoms. Patient denies any chest pain or shortness of breath. Related Data Previous Rx's ?Medication ?Instructions ?Recorded famotidine 20 mg tablet (Pepcid) 20 mg PO BID 7 days #14 tabs 05/17/24 Allergies Allergy/AdvReac Type Severity Reaction Status Date / Time No Known Allergies Allergy Verified 05/17/24 13:19 Review of Systems Review of Systems: abdominal pain Yes all other systems are reviewed and are negative PMFSH Past Medical History Medical History Liposarcoma Surgical History H/O excision of mass History of surgical procedure (~04/28/23) Social History Social History Housing: Apartment Alcohol intake: never Patient Tobacco Use Status: Never used Tobacco e-Cigarette/Vaping Use: Never Used Second Hand Smoke Exposure: No Advance Directives: No Advance Directives Information Provided: No Do you have a plan to hurt others: No Plan service: No Current occupational status: disabled Cognitive needs: No Hearing needs: No Vision needs: No Physical Exam ED Vital Signs: Vital Signs - 24 hr 05/17/24 19:08 05/17/24 20:42 Temperature 97.3 F 97.3 F Pulse Rate 73 73 Respiratory Rate 16 16 Blood Pressure 117/79 117/79 Pulse Oximetry 99 99 Oxygen Delivery Method Room Air Room Air BMI result Body Mass Index 32.3 Const General: cooperative, healthy appearing, comfortable, no acute distress, well developed, alert, awake and Physically active Orientation/consciousness: patient oriented x3 HENMT Head: Yes normal to inspection, Yes No palpable skull fracture present, Yes normocephalic and Yes atraumatic Throat: Yes posterior oropharynx normal, Yes tonsils normal and Yes uvula midline Eyes General: appearance normal, both eyes and all related structures Neck Neck: Yes normal visual inspection, Yes full ROM, Yes no lymphadenopathy, Yes no meningeal signs, Yes trachea midline, Yes supple, No anterior neck swelling and No tender Chest Chest palpation & inspection: normal inspection of the chest and normal palpation of entire chest wall Resp Effort & Inspection: normal respiratory effort Auscultation: clear to auscultation bilaterally Cardio Jugular venous distension: no JVD Heart sounds: S1 normal heart sound present and S2 normal heart sound present GI Inspection: Yes normal to inspection Palpation (GI): Soft to palpation, not firm, Tenderness to palpation present (GI) in the epigastrum and in the RUQ, no guarding and not rigid General: No CVA tenderness and Yes no CVA tenderness Back/Spine/Pelvis Back: no CVA tenderness, No CVA tenderness and No back tenderness Skin General skin exam: no rashes or lesions noted, elasticity normal and turgor normal Neuro General: patient oriented x3, gait normal, tone normal, moves all extremities, Normal light touch and pain sensation, no meningeal signs, no focal motor deficits, CN's II-XI intact bilaterally and normal sensation to monofilament Extrem General: Yes normal to inspection and Yes full ROM Psych Appearance: grossly normal, well kempt and not disheveled Course Course Course Narrative: This is a rapid medical exam performed by Jennifer Herrmann NP: Additional HPI, ROS, PE not included below will be deferred to primary provider. Patient is a 47-year-old male presenting to the ED with complaint of RUQ abdominal pain which he describes as a blockage, but states has been able to have normal bowel movements. Nausea without vomiting. Feels pain is moving to left side. Yesterday having a BM and the pain radiated to left leg. 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 Patient denies any constipation. Patient denies any genitourinary symptoms. History exam indicate more dyspepsia. Labs are normal. Ultrasound shows fatty liver. We will do EKG 1 troponin to make sure there is no cardiac due to age. Patient having symptoms for week. Due to patient having history of recent stage IV sarcoma motor abdominal CT scan make sure there is no abdominal mass/cancer. 8:12pm: EKG shows normal sinus rythm. Patient troponin negative after symptoms for [address] sacn normal, shows fatty liver. Patient given Ct scan results and informed to follow up with PCP and appeals officer. Patient symptoms improved with pepcid. NOt suspecting IA, pneumonia, PE, abdominal cancer, UTI, pancreatitis, aoritc disection, mestenderic ischemia, or any other concerning etiologies. Patient explained worriseome signs and informed to returned to the ED immediately. Differential Diagnosis Differential Diagnoses: The differential diagnosis associated with the presentation includes (fatty liver, GERD. cholecysitsi, pancreatitis) Admission/Observation Consideration of admission/observation: Escalation of care including admission/observation considered Lab Data [facility] Lab Attestation statement: I reviewed the patient's lab results. 05/17/24 14:42 05/17/24 14:42 Labs: Lab Results 05/17/24 05/17/24 Range/Units 14:42 17:07 WBC 7.2 (4.8-10.8) X10*3/uL RBC 5.51 (4.60-5.80) X10*6/uL Hgb 15.4 (14.0-18.0) g/dl Hct 44.8 (42.0-52.0) % MCV 81.3 (80.0-98.0) fL MCH 27.9 (27.0-33.0) pg MCHC 34.4 (31.0-36.0) g/dl RDW 13.2 (11.0-16.0) % Plt Count 246 (160-400) X10*3/uL MPV 9.3 L (9.4-12.4) fL Immature Gran % (Auto) 0.3 (0.0-0.4) % Neut % (Auto) 64.8 (45-73) % Lymph % (Auto) 21.3 (20-40) % [place] % (Auto) 7.1 (2-11) % Eos % (Auto) 5.8 H (0-4) % Baso % (Auto) 0.7 (0-2) % Lymph # (Auto) 1.5 (1.2-4.9) X10*3/uL [place] # (Auto) 0.5 (0.1-1.2) X10*3/uL Eos # (Auto) 0.4 (0.0-0.4) X10*3/uL Baso # (Auto) 0.1 (0.0-0.2) X10*3/uL Abs Immat Gran (auto) 0.02 (0.00-0.03) X10*3/uL Absolute Neuts (auto) 4.7 (2.0-8.3) x10*3/uL Absolute Nucleated RBC 0.000 (0.0-0.012) X10*3/uL Nucleated RBC % (auto) 0.0 (0.0-0.2) /100WBC PT 11.7 (10.9-12.4) SEC INR 1.0 (0.9-1.1) Sodium 141 (135-145) mmol/L Potassium 3.6 (3.3-5.1) mmol/L Chloride 110 H (96-108) mmol/L Carbon Dioxide 23 (22-29) mmol/L Anion Gap 12 (12-20) BUN 11 (9-16) mg/dL Creatinine 1.17 (0.5-1.4) mg/dL Estim Creat Clear Calc 94.5 Estimated GFR > 60 Random Glucose 92 (60-115) mg/dL Calcium 9.7 (8.4-10.2) mg/dL Total Bilirubin 0.9 (0.0-1.0) mg/dL AST 19 (5-37) U/L ALT 33 (0-40) U/L Alkaline Phosphatase 62 (39-117) U/L Troponin I High Sens 4.1 (<3.5-35.0) ng/L Total Protein 7.8 (6.5-8.0) g/dL Albumin 4.4 (3.5-5.0) g/dL Amylase 44 (28-100) U/L Lipase 33 (8-78) U/L Urine Color Yellow Urine Appearance Clear Urine pH 5.0 (5.0-9.0) Ur Specific [place] 1.025 (1.005-1.025) Urine Protein Negative (Neg-Trace) mg/dL Urine Glucose (UA) Negative (Negative) mg/dL Urine Ketones Negative (Negative) mg/dL Urine Blood Trace H (Negative) Urine Nitrite Negative (Negative) Ur Leukocyte Esterase Negative (Negative) Urine RBC 3-5 H (0-2) /HPF Urine WBC 0-5 (0-5) /HPF Ur Squamous Epith Cells 0-2 (0-2) /HPF Urine Bacteria None Seen (None Seen) Hyaline Casts 0-2 (0-2) /LPF Independent Interpretation I performed an independent interpretation of an: EKG (normal sinus rhythm), Ultrasound and CT Scan Radiology Impression Discussion of test interpretation with radiology: I have reviewed the radiologist's reading. Independent Historian Clinical information obtained from an independent historian. History obtained from or confirmed by: Other (patient) External Record Review External record reviewed: Other (prior visits) Prescription Management I considered prescription management with: Other (pepcid) Discharge Plan Discharge Clinical Impression: Fatty liver, Gastroesophageal reflux disease Patient Disposition: Home, Self-Care Instructions: Gastroesophageal Reflux Disease (ED), Non-Alcoholic Fatty Liver Disease (ED) Additional Instructions: Recommend follow-up with primary care provider and appeals officer. Return to the ED immediately for severe pain, nausea,, vomiting, chest pain, shortness of breath, blood in stool, dysuria, hematuria, or any other concerning symptoms. CT/CT abdomen pelvis w IV con IMPRESSION: 1. A cause for the patient's abdominal pain has not been found. 2. Incidental note made of mildly enlarged fatty liver, benign hepatic cyst, tiny nonobstructing left renal calculus and colonic diverticulosis without diverticulitis. Fleischner guidelines were followed. Electronically signed by: Saqib Turcios MD 05/17/2024 07:07 PM EDT RP Prescriptions: New famotidine [Pepcid] 20 mg tablet 20 mg PO BID 7 Days Qty: 14 0RF Referrals: [facility] [Provider Group] (Fatty liver GERD) Stand Alone Forms: Work/School Release Interventions: ED Discharge Assessment Last Done: 05/17/24 20:42 Discharge Date/Time: 05/17/24 20:42 Print Language: Greenlandic
[2024-05-17 14:46] LABS: MANUAL DIFF FLAG NO
[2024-05-17 14:48] LABS: Basophils Absolute Auto 0.1 X10*3/uL (0.0-0.2); Basophils Percent Auto 0.7 % (0-2); Eosinophils Absolute Auto 0.4 X10*3/uL (0.0-0.4); Eosinophils Percent Auto 5.8 % (0-4); Hematocrit 44.8 % (42.0-52.0); Hemoglobin 15.4 g/dl (14.0-18.0); Imm Gran Abs Auto 0.02 X10*3/uL (0.00-0.03); Imm Gran Pct Auto 0.3 % (0.0-0.4); Lymphocytes Absolute Auto 1.5 X10*3/uL (1.2-4.9); Lymphocytes Percent Auto 21.3 % (20-40); Mean Corpuscular HGB Conc 34.4 g/dl (31.0-36.0); Mean Corpuscular Hemoglobin 27.9 pg (27.0-33.0); Mean Corpuscular Volume 81.3 fL (80.0-98.0); Mean Platelet Volume 9.3 fL (9.4-12.4); Monocytes Absolute Auto 0.5 X10*3/uL (0.1-1.2); Monocytes Percent Auto 7.1 % (2-11); Neutrophils Absolute Auto 4.7 x10*3/uL (2.0-8.3); Neutrophils Percent Auto 64.8 % (45-73); Platelet Count 246 X10*3/uL (160-400); Red Blood Count 5.51 X10*6/uL (4.60-5.80); Red Cell Distribution Width 13.2 % (11.0-16.0); White Blood Count 7.2 X10*3/uL (4.8-10.8)
[2024-05-17 14:55] LABS: Prothrombin Time 11.7 SEC (10.9-12.4)
[2024-05-17 15:06] LABS: Alanine Aminotransferase 33 U/L (0-40); Albumin Level 4.4 g/dL (3.5-5.0); Alkaline Phosphatase 62 U/L (39-117); Amylase 44 U/L (28-100); Anion Gap 12 (12-20); Aspartate Amino Transferase 19 U/L (5-37); Bilirubin Total 0.9 mg/dL (0.0-1.0); Blood Urea Nitrogen 11 mg/dL (9-16); Calcium 9.7 mg/dL (8.4-10.2); Carbon Dioxide 23 mmol/L (22-29); Chloride 110 mmol/L (96-108); Creatinine Clr Calc Pharmacy 94.5; Estimated Glomerular Filt Rate > 60; Glucose Random 92 mg/dL (60-115); Lipase 33 U/L (8-78); Potassium 3.6 mmol/L (3.3-5.1); Sodium 141 mmol/L (135-145); Total Protein 7.8 g/dL (6.5-8.0)
[2024-05-17 15:40] VITALS: BP 137/92; PULSE 76; RESP 16; TEMP 36.9; O2SAT 98
--- NOTE | 2024-05-17 16:42 | ECG_ITS ---
Test Reason : workup Blood Pressure : / mmHG Vent. Rate : 071 BPM Atrial Rate : 071 BPM P-R Int : 150 ms QRS Dur : 104 ms QT Int : 388 ms P-R-T Axes : 017 037 009 degrees QTc Int : 421 ms Normal sinus rhythm Normal ECG When compared with ECG of 23-DEC-2021 21:12, No significant change was found Referred By: Mango Mcpherson Electronically Signed By:COLTEN BARAJAS
[2024-05-17] MEDS: iohexoL 350 MG/ML 100 ML INFUS..BTL IV (17:17)
[2024-05-17 17:20] LABS: Appearance Urine Clear; Color Urine Yellow; Glucose Urine UA Negative (Negative); Leukocyte Esterase Urine Negative (Negative); Nitrite Urine Negative (Negative); Specific Gravity - Urine 1.025 (1.005-1.025); UMIC TRIGGER UACC YES; Urine Blood Trace (Negative); Urine Ketones Negative (Negative); Urine Protein Negative (Neg-Trace)
[2024-05-17 17:25] LABS: Bacteria Urine None Seen (None Seen); Hyaline Casts Urine 0-2 /LPF (0-2); Squamous Epithelial Cell Urine 0-2 /HPF (0-2); WBC Urine 0-5 /HPF (0-5)
[2024-05-17 17:42] LABS: Troponin-I High Sensitivity 4.1 ng/L (<3.5-35.0)
[2024-05-17 19:08] VITALS: BP 117/79; PULSE 73; RESP 16; TEMP 36.3; O2SAT 99
[2024-05-17] MEDS: Famotidine/PF 20 MG/2 ML VIAL IVPUSH (19:11)
--- NOTE | 2024-05-17 20:29 | PC.NURSE ---
PT medicated with pepcid and 50 ml saline bag hung not pushed.
[2024-05-17 20:42] VITALS: BP 117/79; PULSE 73; RESP 16; TEMP 36.3; O2SAT 99
== END 2024-05-17 20:42 | disposition home or self-care (01) ==
PROVIDERS: Physician Assistant; Registered Nurse Emergency; Emergency Provider Internal Medicine; PCP Internal Medicine
DX: K76.0 Fatty (change of) liver, not elsewhere classified (principal); K21.9 Gastro-esophageal reflux disease without esophagitis; R10.11 Right upper quadrant pain
CPT/HCPCS: 36415; 74177; 76705; 80053; 81001; 82150; 83690; 84484; 85025; 85610; 93005; 96374; 99284; Q9967

== ENCOUNTER 2024-05-23 10:47 | Outpatient (AMB) | payer MEDICARE, MEDICAID, SELFPAY ==
[2024-05-23 10:55] VITALS: BP 116/80; PULSE 68; O2SAT 98; BMI 32.4
--- NOTE | 2024-05-23 10:55 | A.OFFPC_ITS ---
Vital Signs 05/23/24 10:55 Height 5 ft 9 in Weight 219 lb 4 oz BMI 32.4 BP 116/80 Blood Pressure Location Lt brachial Position Sitting Pulse 68 Pulse Source Pulse Oximeter Pulse Oximetry (%) 98 Oxygen Delivery Method Room Air Intake [place] [facility] [place] upper abd pain Intake Note: Patient is here to follow up on 3 months Licensed Mental Health Professional Required: No Accompanied by: Self / Same As Patient Allergies No Known Allergies Allergy (Verified 05/23/24 10:56) Tobacco use date assessed: 05/23/24 Dental Screening Dental Screen Date: 05/23/24 Did you have a dental visit in the last 12 months?: No Did you have a dental problem in the last 6 months where you did not have access to dental care?: No Was dental information given to patient?: Patient has dentist [facility] Medical History Liposarcoma Surgical History H/O excision of mass History of surgical procedure (~04/28/23) Social History Housing: Apartment Alcohol intake: never Patient Tobacco Use Status: Never used Tobacco e-Cigarette/Vaping Use: Never Used Second Hand Smoke Exposure: No service: No Current occupational status: disabled Cognitive needs: No Hearing needs: No Vision needs: No Questionnaire PHQ-9 Over the last 2 weeks, how often have you been bothered by any of the following problems? 1. Little interest or pleasure in doing things: not at all 2. Feeling down, depressed, or hopeless: not at all 3. Trouble falling or staying asleep, or sleeping too much: not at all 4. Feeling tired or having little energy: not at all 5. Poor appetite or overeating: not at all 6. Feeling bad about yourself - or that you are a failure or have let yourself or your family down: not at all 7. Trouble concentrating on things, such as reading the newspaper or watching television: not at all 8. Moving or speaking so slowly that other people could have noticed. Or the opposite - being so fidgety or restless that you have been moving around a lot more than usual: not at all 9. Thoughts that you would be better off or of hurting yourself in some way: not at all Total score: 0 Depression Screening Interpretation: Negative Depression Screening Done: Yes [id number] - PHQ-9 Billing: Yes Source: Developed by Drs. Silvano Ambrocio, Terese Rogel, Maikol Huang and colleagues, with an educational jaskaran from [employer]. Thrive Questionnaire Date Thrive assessed: 05/23/24 I am a: Patient What is your living situation today?: I have a steady place to live Within the past 12 months, did the food you bought not last and you didn't have the money to get more?: Never true Within the past 12 months, did you worry whether your food would run out before you got money to buy more?: Never true Do you have trouble paying for medicines?: No Do you have trouble getting transportation to medical appointments?: No Do you have trouble paying your heating and electricity bill?: No Do you have trouble taking care of your child, family member or friend?: No Do you have trouble with day-to-day activities such as bathing, preparing meals, shopping, managing finances, etc.?: No Are you currently unemployed and looking for a job?: No Are you interested in more education?: No Please select the resources that you would like help with: None Currently or been in a relationship where the following occur: No concerns reported THRIVE Score: 0 AUDIT C Alcohol Use Questionnaire (AUDIT-C) 1. How often do you have a drink containing alcohol?: Never 3. How often do you have six or more drinks on one occasion?: Never Total Score: 0 Score Reviewed/Action Taken: Yes WANDA-7 AMB Questionnaire WANDA-7 Date WANDA - 7 assessed: 05/23/24 Feeling nervous, anxious, or on edge: 0 = Not at all Not being able to stop or control worryin = Not at all Worrying too much about different things: 0 = Not at all Trouble relaxin = Not at all Being so restless that it is hard to sit still: 0 = Not at all Becoming easily annoyed or irritable: 0 = Not at all Feeling afraid as if something awful might happen: 0 = Not at all Total WANDA-7 score (0-4 normal; 5-9 mild; 10-14 moderate; 15-21 severe): 0 Source: Developed by Drs. Silvano Ambrocio, Terese Rogel, Maikol Huang and colleagues, with an educational jaskaran from [employer]. Physical exam (Primary Care) Vital Signs: Last Vital Signs Pulse 68 05/23/24 10:55 BP 116/80 05/23/24 10:55 Pulse Ox 98 05/23/24 10:55 Oxygen Delivery Method Room Air 05/23/24 10:55 BMI result Body Mass Index 32.4 Tobacco/Smoking Status: Tobacco use Status Tobacco use date assessed 05/23/24 05/23/24 11:00 Patient Tobacco Use Status Never used Tobacco 05/23/24 11:00 e-Cigarette/Vaping Use Never Used 05/23/24 11:00 PHQ-9: PHQ-9 Score PHQ-9: Total score 0 05/23/24 11:04 Depression Screening Interpretation: Negative Thrive Assessment: Date of Thrive Assessment Date Thrive assessed 05/23/24 05/23/24 11:00 Currently or been in a relationship where the following occur: No concerns reported Office Procedures Flu Questionnaire Does the patient have a severe egg allergy?: No Immunizations Fluarix Triv [id number] (PF) 45 mcg (15 mcg x 3)/0.5 mL IM syringe Performing Provider: Tutu Baez MD [facility] [place] [facility] Documented (not given) by: DARBY Moreno on 05/23/24 11:04 Reason Not Given: Patient Refused Coding Assessment & Plan Assessment & Plan Orders: Orders XR KUB Today R10.9 - Unspecified abdominal pain Influenza Immunization Today Z23 - Encounter for immunization
== END 2024-05-23 12:09 | disposition home or self-care (01) ==
PROVIDERS: PCP Internal Medicine; Visit Provider Internal Medicine
DX: Z23 Encounter for immunization (principal)

== ENCOUNTER → 2024-05-23 10:47 | Outpatient (BNVA) | payer MEDICARE, MEDICAID, SELFPAY | PROVIDERS: PCP Internal Medicine; Visit Provider Internal Medicine | DX: R10.10 Upper abdominal pain, unspecified (principal); C49.9 Malignant neoplasm of connective and soft tissue, unspecified; N20.0 Calculus of kidney; E66.9 Obesity, unspecified | CPT/HCPCS: 90471; 96127; 99212 ==

== ENCOUNTER 2024-10-30 13:32 | Emergency (ER) | payer MEDICARE, MEDICAID, SELFPAY ==
--- NOTE | ~2024-10-30 | XR_ITS ---
EXAMINATION: XR ABDOMEN KUB CLINICAL INDICATION: epigastric distention, unable to belch COMPARISON: Correlated to CT dated May 2024. TECHNIQUE: AP view of the abdomen. FINDINGS: There is gas throughout the nondilated intestine. Stool within the transverse and ascending colon. Spina bifida occulta S1. . XR/XR KUB IMPRESSION: No intestinal obstruction pattern. Electronically signed by: Geovanni Hill MD 10/30/2024 02:36 PM EDT
--- NOTE | ~2024-10-30 | CT_ITS ---
CLINICAL HISTORY: epigastric pain CT abdomen and pelvis with contrast Comparison: CT - CT ABDOMEN PELVIS W IV CON - 10/30/24 18:18 EDT Findings: Small hiatal hernia. Unremarkable gallbladder and solid organs. No urolithiasis. No bowel obstruction, pneumoperitoneum, or pneumatosis. Pelvic contents unremarkable. Normal appendix. No acute fracture. IMPRESSION: No acute findings. Small hiatal hernia. This document has been electronically signed by: Esau Collier MD on 10/30/2024 19:18:47
[2024-10-30 14:06] VITALS: BP 134/84; PULSE 85; RESP 18; TEMP 36.4; O2SAT 97; BMI 29.3
--- NOTE | 2024-10-30 14:09 | ED.GENADULT ---
HPI - General Adult General Chief complaint: Abdominal Pain Stated complaint: feels blockage Time Seen by Provider: 10/30/24 17:34 Source: patient, RN notes reviewed and old records reviewed Mode of arrival: ambulatory Limitations: no limitations History of Present Illness ED Provider: Titi HPI narrative: 44-year-old male with past medical history significant for GERD, history of liposarcoma presents for evaluation abdominal discomfort. Patient reports his symptoms started about 4 or 5 days ago His pain is worse when he was lying on his left side and after eating. The patient reports ?I feel like there is a pushing or tugging sensation. ? Denies any chest pain but describes more epigastric pain He denies any previous abdominal surgeries No fevers or chills He reports nausea but denies vomiting or diarrhea Related Data Previous Rx's ?Medication ?Instructions ?Recorded famotidine 20 mg tablet (Pepcid) 20 mg PO BID 7 days #14 tabs 05/17/24 omeprazole 20 mg tablet,delayed 20 mg PO DAILY #14 tabs 10/30/24 release Allergies Allergy/AdvReac Type Severity Reaction Status Date / Time No Known Allergies Allergy Verified 10/30/24 14:11 Review of Systems Constitutional: Constitutional: Denies body ache(s), Denies chills and Denies fever(s) Eyes: Eyes: Denies blurry vision ENT: Denies vertigo and Denies dizziness Cardiovascular: Cardiovascular: Denies chest pain and Denies dyspnea Respiratory: Respiratory: Denies cough and Denies dyspnea Gastrointestinal: Gastrointestinal: Reports abdominal pain, Reports nausea and Denies vomiting Musculoskeletal: Musculoskeletal: Denies back pain Integumentary/Breasts: Skin/Breast: Denies rash Neurologic: Denies vertigo and Denies dizziness [facility] Past Medical History Medical History (Updated 10/30/24 @ 19:42 by Pablito Walls) Obesity (BMI 30-39.9) Liposarcoma Surgical History H/O excision of mass History of surgical procedure (~04/28/23) Social History Social History Housing: Apartment Alcohol intake: never Patient Tobacco Use Status: Never used Tobacco e-Cigarette/Vaping Use: Never Used Second Hand Smoke Exposure: No Use of substances other than those prescribed or required for medical reasons: No Advance Directives: Yes Advance Directives Information Provided: Yes Advance Directives on File: No service: No Current occupational status: disabled Cognitive needs: No Hearing needs: No Vision needs: No Physical Exam ED Vital Signs: Vital Signs - 24 hr 10/30/24 14:06 10/30/24 18:11 Temperature 97.6 F Pulse Rate 85 84 Respiratory Rate 18 16 Blood Pressure 134/84 129/89 Pulse Oximetry 97 99 Oxygen Delivery Method Room Air Room Air BMI result Body Mass Index 29.3 Const General: healthy appearing, comfortable, no acute distress, alert and awake Nutritional Appearance: well nourished Orientation/consciousness: patient oriented x3 HENMT Head: Yes normocephalic and Yes atraumatic Eyes Eyelids: Yes eyelids normal Conjunctivae: conjunctivae normal Sclerae: sclerae normal Corneas: corneas normal Pupils: Equal, round and reactive pupils present EOM: EOMs intact bilaterally Neck Neck: Yes full ROM Resp Effort & Inspection: normal respiratory effort, able to speak in complete sentences, no audible wheezes and not labored Auscultation: clear to auscultation bilaterally Cardio Rate: regular rate Rhythm: regular rhythm GI Inspection: No distended Palpation (GI): Soft to palpation, not firm, Tenderness to palpation present (GI) in the epigastrum and in the LUQ; not in the LLQ, not in the RLQ, not in the RUQ and Oconnor's sign negative, no guarding and not rigid Auscultation: normoactive bowel sounds Skin General skin exam: elasticity normal Neuro General: patient oriented x3 Cranial nerves: Yes Equal, round and reactive pupils present and Yes Bilaterally intact EOM present Cognition (Neuro): normal cognition Extrem Other: Moving all extremities well without any obvious deformities Course Course Course Narrative: This is a rapid medical exam performed by Jennifer Herrmann NP: Additional HPI, ROS, PE not included below will be deferred to primary provider. Patient is a 44-year old male with history of liposarcoma presenting with complaint of epigastric pain, distention, has been unable to belch x 4-5 days. More comfortable laying on right side. No difficulty with urination or bowel movements. Has not tried any OTC medications. Plan: Labs, EKG Medications Administered Discontinued Medications Generic Name Dose Route Start Last Admin Trade Name Freq PRN Reason Stop Dose Admin Iohexol 85 ml 10/30/24 18:26 10/30/24 18:27 Iohexol 350 Mg/Ml 100 Ml Infus..Btl IV 10/30/24 18:27 85 ml ONCE ONE Administration Medical Decision Making Medical Decision Making [facility] Narrative: 44-year-old male presents for evaluation of upper abdominal pain. He has mild epigastric tenderness on exam, his abdomen is soft, not rigid and nondistended. He had a KUB that does not show any evidence of obstruction. The patient's labs are quite reassuring. I discussed the patient's symptoms and that his pain is most likely related to GERD/gastritis versus hiatal hernia. Discussed discharge the patient and outpatient follow-up. The patient is quite anxious about his diagnosis as the hernia was not seen on KUB. He is mostly nervous about his history of liposarcoma and possibility for additional tumors. I agreed to order a CT scan which confirms a small hiatal hernia does not show any other concerning abnormalities. We will discharge the patient with GI and general surgery follow-up Differential Diagnosis Differential Diagnoses: The differential diagnosis associated with the presentation includes Hiatal hernia GERD Gastritis Peptic ulcer disease Bowel obstruction Constipation Pancreatitis Lab Data [facility] Lab Attestation statement: I reviewed the patient's lab results. No leukocytosis or anemia. Normal platelet count. No significant electrolyte abnormalities. 10/30/24 14:44 10/30/24 14:44 Labs: Lab Results 10/30/24 Range/Units 14:44 WBC 7.0 (4.8-10.8) X10*3/uL RBC 5.54 (4.60-5.80) X10*6/uL Hgb 15.5 (14.0-18.0) g/dl Hct 44.3 (42.0-52.0) % MCV 80.0 (80.0-98.0) fL MCH 28.0 (27.0-33.0) pg MCHC 35.0 (31.0-36.0) g/dl RDW 13.3 (11.0-16.0) % Plt Count 241 (160-400) X10*3/uL MPV 9.7 (9.4-12.4) fL Immature Gran % (Auto) 0.1 (0.0-0.4) % Neut % (Auto) 57.0 (45-73) % Lymph % (Auto) 27.7 (20-40) % Sampson % (Auto) 6.5 (2-11) % Eos % (Auto) 7.8 H (0-4) % Baso % (Auto) 0.9 (0-2) % Lymph # (Auto) 2.0 (1.2-4.9) X10*3/uL Sampson # (Auto) 0.5 (0.1-1.2) X10*3/uL Eos # (Auto) 0.6 H (0.0-0.4) X10*3/uL Baso # (Auto) 0.1 (0.0-0.2) X10*3/uL Abs Immat Gran (auto) 0.01 (0.00-0.03) X10*3/uL Absolute Neuts (auto) 4.0 (2.0-8.3) x10*3/uL Absolute Nucleated RBC 0.000 (0.0-0.012) X10*3/uL Nucleated RBC % (auto) 0.0 (0.0-0.2) /100WBC Sodium 140 (135-145) mmol/L Potassium 4.0 (3.3-5.1) mmol/L Chloride 110 H (96-108) mmol/L Carbon Dioxide 23 (22-29) mmol/L Anion Gap 11 L (12-20) BUN 16 (9-16) mg/dL Creatinine 1.01 (0.5-1.4) mg/dL Estim Creat Clear Calc 117.6 Estimated GFR > 60 Random Glucose 95 (60-115) mg/dL Calcium 9.6 (8.4-10.2) mg/dL Total Bilirubin 0.7 (0.0-1.0) mg/dL AST 25 (5-37) U/L ALT 40 (0-40) U/L Alkaline Phosphatase 67 (39-117) U/L Troponin I High Sens < 2.7 (<3.5-35.0) ng/L Total Protein 7.7 (6.5-8.0) g/dL Albumin 4.1 (3.5-5.0) g/dL Independent Interpretation I performed an independent interpretation of an: Plain X-Ray Interpretation: Agree with Radiology interpretation Radiology Impression Discussion of test interpretation with radiology: I have reviewed the radiologist's reading. Radiologist Impression: Findings: Small hiatal hernia. Unremarkable gallbladder and solid organs. No urolithiasis. No bowel obstruction, pneumoperitoneum, or pneumatosis. Pelvic contents unremarkable. Normal appendix. No acute fracture. IMPRESSION: No acute findings. Small hiatal hernia. This document has been electronically signed by: Esau Collier MD on 10/30/2024 19:18:47 Discharge Plan Discharge Clinical Impression: Hernia, hiatal Patient Disposition: Home, Self-Care Instructions: Hiatal Hernia (ED) Additional Instructions: Your workup in the ER showed a hiatal hernia which is likely the cause of your symptoms. I recommend that you take omeprazole 20 mg daily for the next 2 weeks. You should avoid spicy, greasy foods plan I also recommend he follow up with both GI and General surgery Referrals are attached Return for new or worsening symptoms Prescriptions: New omeprazole 20 mg tablet,delayed release (DR/EC) 20 mg PO DAILY Qty: 14 0RF No Action famotidine [Pepcid] 20 mg tablet 20 mg PO BID 7 Days Qty: 14 0RF Referrals: Collins Mcpherson MD [Physician] - (hiatal hernia) Silvano Timmons MD [Physician] - (hiatal hernia) Print Language: Prydeinig
--- NOTE | 2024-10-30 14:13 | ECG_ITS ---
Test Reason : cp Blood Pressure : */* mmHG Vent. Rate : 74 BPM Atrial Rate : 74 BPM P-R Int : 128 ms QRS Dur : 92 ms QT Int : 366 ms P-R-T Axes : 15 35 8 degrees QTcB Int : 406 ms Normal sinus rhythm Normal ECG When compared with ECG of 17-May-2024 17:18, No significant change was found Referred By: Carol Herrmann Electronically Signed By: Christian Beltran
--- NOTE | 2024-10-30 14:20 | PC.NURSE ---
Attempting to call pt for EKG but pt off unit for Xray at this time
[2024-10-30 14:48] LABS: MANUAL DIFF FLAG NO
[2024-10-30 14:51] LABS: Basophils Absolute Auto 0.1 X10*3/uL (0.0-0.2); Basophils Percent Auto 0.9 % (0-2); Eosinophils Absolute Auto 0.6 X10*3/uL (0.0-0.4); Eosinophils Percent Auto 7.8 % (0-4); Hematocrit 44.3 % (42.0-52.0); Hemoglobin 15.5 g/dl (14.0-18.0); Imm Gran Abs Auto 0.01 X10*3/uL (0.00-0.03); Imm Gran Pct Auto 0.1 % (0.0-0.4); Lymphocytes Percent Auto 27.7 % (20-40); Mean Platelet Volume 9.7 fL (9.4-12.4); Monocytes Absolute Auto 0.5 X10*3/uL (0.1-1.2); Monocytes Percent Auto 6.5 % (2-11); Platelet Count 241 X10*3/uL (160-400); Red Blood Count 5.54 X10*6/uL (4.60-5.80); Red Cell Distribution Width 13.3 % (11.0-16.0)
[2024-10-30 15:12] LABS: Troponin-I High Sensitivity < 2.7 ng/L (<3.5-35.0)
[2024-10-30 15:14] LABS: Alanine Aminotransferase 40 U/L (0-40); Albumin Level 4.1 g/dL (3.5-5.0); Alkaline Phosphatase 67 U/L (39-117); Anion Gap 11 (12-20); Aspartate Amino Transferase 25 U/L (5-37); Bilirubin Total 0.7 mg/dL (0.0-1.0); Blood Urea Nitrogen 16 mg/dL (9-16); Calcium 9.6 mg/dL (8.4-10.2); Carbon Dioxide 23 mmol/L (22-29); Chloride 110 mmol/L (96-108); Creatinine Clr Calc Pharmacy 117.6; Estimated Glomerular Filt Rate > 60; Glucose Random 95 mg/dL (60-115); Sodium 140 mmol/L (135-145); Total Protein 7.7 g/dL (6.5-8.0)
[2024-10-30 18:11] VITALS: BP 129/89; PULSE 84; RESP 16; O2SAT 99
[2024-10-30] MEDS: iohexoL 350 MG/ML 100 ML INFUS..BTL 85 ML IV (18:27)
[2024-10-30] MEDS: Omeprazole 20 MG CAPSULE.DR PO (19:56)
[2024-10-30 20:03] VITALS: BP 132/80; PULSE 80; RESP 16; TEMP 36.6; O2SAT 97
== END 2024-10-30 20:03 | disposition home or self-care (01) ==
PROVIDERS: Registered Nurse Emergency; Emergency Provider Emergency Medicine; PCP Internal Medicine
DX: K44.9 Diaphragmatic hernia without obstruction or gangrene (principal); R10.13 Epigastric pain; R07.89 Other chest pain; R10.816 Epigastric abdominal tenderness
CPT/HCPCS: 36415; 74018; 74177; 80053; 84484; 85025; 93005; 99284; 99285; Q9967

== ENCOUNTER → 2024-10-30 14:13 | Outpatient (BNV) | payer MEDICARE, MEDICAID, SELFPAY | PROVIDERS: Emergency Provider Emergency Medicine; PCP Internal Medicine; Visit Provider Internal Medicine Cardiovascular Disease | DX: R07.9 Chest pain, unspecified (principal) | CPT/HCPCS: 93010 ==

== ENCOUNTER → 2024-10-30 14:13 | Outpatient (BNV) | payer MEDICARE, MEDICAID, SELFPAY | PROVIDERS: PCP Internal Medicine; Visit Provider Radiology Diagnostic Radiology | DX: K44.9 Diaphragmatic hernia without obstruction or gangrene (principal); R19.06 Epigastric swelling, mass or lump | CPT/HCPCS: 74018 ==

== ENCOUNTER 2024-11-13 14:34 | Outpatient (AMB) | payer MEDICARE, MEDICAID, SELFPAY ==
[2024-11-13 14:46] VITALS: BP 110/82; PULSE 74; O2SAT 96; BMI 33.1
--- NOTE | 2024-11-13 14:46 | MHC.PC.OV ---
Vital Signs 11/13/24 14:46 Height 5 ft 9 in Weight 224 lb BMI 33.1 BP 110/82 Blood Pressure Location Lt brachial Position Sitting Pulse 74 Pulse Source Pulse Oximeter Pulse Oximetry (%) 96 Oxygen Delivery Method Room Air Intake Visit Reasons: ER Follow up [place] Required: No Accompanied by: Self / Same As Patient Allergies No Known Allergies Allergy (Verified 11/13/24 15:12) Medication List - Last Reconciled 11/13/24 by Tutu Baez MD omeprazole 20 mg PO DAILY Tobacco use date assessed: 11/13/24 Dental Screening Dental Screen Date: 11/13/24 Did you have a dental visit in the last 12 months?: No Did you have a dental problem in the last 6 months where you did not have access to dental care?: No Was dental information given to patient?: No HPI ER Follow up HPI Details Patient comes in today for his HDF follow up visit He went to the ER a couple of weeks ago for persistent abdominal discomfort - he describes the sensation as a feeling of something is blocked over his epigastric area especially when he is eating or drinking something and that he has not been able to belch for the past 4-5 days even though he feels like there is something in his stomach Notes that his stomach feels better and more comfortable when he lies down on his right side but he can not explain why this is the case He denies any nausea or vomiting and states that he has had no problems with urination or bowel movements Patient had some workups done in the ER including labs and KUB, which all came back normal He next had an abdominal CT done which revealed the presence of a small hiatal hernia. The CT was otherwise unremarkable with no gallbladder abnormalities, no bowel obstruction, pneumoperitoneum or pneumatosis Patient was subsequently discharged home with a prescription for omeprazole 20 mg QD He was advised that he can also take OTC Famotidine 20 mg BID until he is seen by his PCP He was also referred to GI for further evaluation and management and states that he has an appointment scheduled already with Gastroenterology in [place] sometime in December 2024 FOR[facility]LY [facility], [facility] Medical History Obesity (BMI 30-39.9) Liposarcoma Surgical History H/O excision of mass History of surgical procedure (~04/28/23) Social History Housing: Apartment Alcohol intake: never Patient Tobacco Use Status: Never used Tobacco e-Cigarette/Vaping Use: Never Used Second Hand Smoke Exposure: No service: No Current occupational status: disabled Cognitive needs: No Hearing needs: No Vision needs: No Questionnaire PHQ-9 Over the last 2 weeks, how often have you been bothered by any of the following problems? 1. Little interest or pleasure in doing things: not at all 2. Feeling down, depressed, or hopeless: not at all 3. Trouble falling or staying asleep, or sleeping too much: not at all 4. Feeling tired or having little energy: not at all 5. Poor appetite or overeating: not at all 6. Feeling bad about yourself - or that you are a failure or have let yourself or your family down: not at all 7. Trouble concentrating on things, such as reading the newspaper or watching television: not at all 8. Moving or speaking so slowly that other people could have noticed. Or the opposite - being so fidgety or restless that you have been moving around a lot more than usual: not at all 9. Thoughts that you would be better off or of hurting yourself in some way: not at all Total score: 0 Depression Screening Interpretation: Negative Depression Screening Done: Yes 19179 - PHQ-9 Billing: Yes Source: Developed by Drs. Silvano Ambrocio, Terese Rogel, Maikol Huang and colleagues, with an educational jaskaran from [employer]. Thrive Questionnaire Date Thrive assessed: 11/13/24 I am a: Patient What is your living situation today?: I have a steady place to live Within the past 12 months, did the food you bought not last and you didn't have the money to get more?: Never true Within the past 12 months, did you worry whether your food would run out before you got money to buy more?: Sometimes True Do you have trouble paying for medicines?: No Do you have trouble getting transportation to medical appointments?: No Do you have trouble paying your heating and electricity bill?: Yes Do you have trouble taking care of your child, family member or friend?: No Do you have trouble with day-to-day activities such as bathing, preparing meals, shopping, managing finances, etc.?: I choose not to answer this question Are you currently unemployed and looking for a job?: No Are you interested in more education?: No Please select the resources that you would like help with: None Currently or been in a relationship where the following occur: No concerns reported THRIVE Score: 2 AUDIT C Alcohol Use Questionnaire (AUDIT-C) 1. How often do you have a drink containing alcohol?: Never 3. How often do you have six or more drinks on one occasion?: Never Total Score: 0 Score Reviewed/Action Taken: Yes WANDA-7 AMB Questionnaire WANDA-7 Date WANDA - 7 assessed: 11/13/24 Feeling nervous, anxious, or on edge: 0 = Not at all Not being able to stop or control worryin = Not at all Worrying too much about different things: 0 = Not at all Trouble relaxin = Not at all Being so restless that it is hard to sit still: 0 = Not at all Becoming easily annoyed or irritable: 0 = Not at all Feeling afraid as if something awful might happen: 0 = Not at all Total WANDA-7 score (0-4 normal; 5-9 mild; 10-14 moderate; 15-21 severe): 0 Source: Developed by Drs. Silvano Ambrocio, Terese Rogel, Maikol Huang and colleagues, with an educational jaskaran from [employer]. Review of Systems Const Denies chills, Denies fatigue, Denies fever(s) and Denies headache(s) ENT Denies dysphagia, Denies dizziness, Denies otalgia, Denies headache(s), Denies neck pain, Denies odynophagia and Denies sore throat Card Denies chest pain, Denies palpitations and Denies dyspnea Resp Denies chest congestion, Denies cough and Denies dyspnea GI Denies abdominal pain (although he still has some on and off mild epigastric discomfort), Denies constipation, Denies dysphagia, Denies heartburn, Denies diarrhea, Denies nausea, Denies odynophagia and Denies vomiting Denies difficulty urinating, Denies dysuria, Denies nocturia and Denies urinary frequency Musc Denies back pain and Denies neck pain Skin/Breast Denies rash Neuro Denies dizziness and Denies headache(s) Endo Denies fatigue and Denies palpitations Physical exam (Primary Care) Vital Signs: Last Vital Signs Pulse 74 11/13/24 14:46 BP 110/82 11/13/24 14:46 Pulse Ox 96 11/13/24 14:46 Oxygen Delivery Method Room Air 11/13/24 14:46 BMI result Body Mass Index 33.1 Tobacco/Smoking Status: Tobacco use Status Tobacco use date assessed 11/13/24 11/13/24 14:52 Patient Tobacco Use Status Never used Tobacco 11/13/24 14:52 e-Cigarette/Vaping Use Never Used 11/13/24 14:52 PHQ-9: PHQ-9 Score PHQ-9: Total score 0 11/13/24 15:19 Depression Screening Interpretation: Negative Thrive Assessment: Date of Thrive Assessment Date Thrive assessed 11/13/24 11/13/24 14:52 Currently or been in a relationship where the following occur: No concerns reported Const General: no acute distress and alert HENMT Throat: Yes posterior oropharynx normal and Yes tonsils normal (no TP congestion) Neck Neck: Yes supple and No lymphadenopathy Thyroid: Thyroid normal Resp Auscultation: clear to auscultation bilaterally, no rales and no wheezes Cardio Rate: regular rate Rhythm: regular rhythm Heart sounds: no murmurs GI Palpation (GI): Soft to palpation, nontender and no guarding Auscultation: normal bowel sounds General: Yes no CVA tenderness Back/Spine/Pelvis Back: no CVA tenderness Thoracic/Lumbar Spine: No lumbar spinal tenderness Skin Rashes: no rashes Extrem General: Yes no clubbing, cyanosis or edema Coding Level of Care Code Est Pt Level 3 (53013) Diagnoses Hernia, hiatal K44.9 Liposarcoma C49.9 Renal calculus, left N20.0 Obesity (BMI 30-39.9) E66.9 Additional Codes PHQ-9 - 27672 - PHQ-9 Billing: Yes ([id number]) Assessment & Plan Assessment & Plan (1) Hernia, hiatal: Code(s): K44.9 - Diaphragmatic hernia without obstruction or gangrene Category: Medical Plan: This was seen on abdominal CT done at the ER on 10/30/2024 Continue Omeprazole 20 mg QD and Famotidine 20 mg BID PRN Patient already has an appointment with [facility]ology in [place] sometime in December 2024 for further evaluation and management of this issue (2) Liposarcoma: Code(s): C49.9 - Malignant neoplasm of connective and soft tissue, unspecified Category: Medical Plan: S/P surgical excision (at [facility] in [place]) on 10/20/2023 - 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 Patient also received radiation Tx x 5 weeks at [facility] earlier last year Follow up with oncology as scheduled for continuing surveillance (3) Renal calculus, left: Code(s): N20.0 - Calculus of kidney Category: Medical Plan: A tiny non-obstructing left renal calculus was seen incidentally on abdominal/pelvic CT done at the ER back in May 2024 but this was not seen on his recent CT done a couple of weeks ago (4) Obesity (BMI 30-39.9): Code(s): E66.9 - Obesity, unspecified Category: Medical Plan: Reinforced diet/exercise as tolerated/lose weight Plan To return in 6 months for his annual physical examination Orders: Orders Comprehensive [place]. Panel Fast 6 Months E78.00 - Pure hypercholesterolemia, unspecified, Z00.00 - Encounter for general adult medical examination without abnormal findings Lipid Panel 6 Months E78.00 - Pure hypercholesterolemia, unspecified, Z00.00 - Encounter for general adult medical examination without abnormal findings Vitamin D 25-OH Total 6 Months E55.9 - Vitamin D deficiency, unspecified, Z00.00 - Encounter for general adult medical examination without abnormal findings Complete Blood Count Auto Diff 6 Months D64.9 - Anemia, unspecified, Z00.00 - Encounter for general adult medical examination without abnormal findings TSH reflex Free T4 6 Months E78.00 - Pure hypercholesterolemia, unspecified, Z00.00 - Encounter for general adult medical examination without abnormal findings UA CC w/rflx Micro + Cult 6 Months R30.0 - Dysuria, Z00.00 - Encounter for general adult medical examination without abnormal findings Medications: Changed From omeprazole 20 mg PO DAILY 14 tabs 0RF To omeprazole 20 mg PO DAILY 30 days 30 tabs 5RF
== END 2024-11-13 15:36 | disposition home or self-care (01) ==
LOC: HO.HMCH 14:35
PROVIDERS: PCP Internal Medicine; Visit Provider Internal Medicine
DX: K44.9 Diaphragmatic hernia without obstruction or gangrene (principal); C49.9 Malignant neoplasm of connective and soft tissue, unspecified; E66.9 Obesity, unspecified; Z68.33 Body mass index [BMI] 33.0-33.9, adult; N20.0 Calculus of kidney

== ENCOUNTER → 2024-11-13 14:34 | Outpatient (BNVA) | payer MEDICARE, MEDICAID, SELFPAY | PROVIDERS: PCP Internal Medicine; Visit Provider Internal Medicine | DX: K44.9 Diaphragmatic hernia without obstruction or gangrene (principal); C49.9 Malignant neoplasm of connective and soft tissue, unspecified; N20.0 Calculus of kidney; E66.9 Obesity, unspecified | CPT/HCPCS: 96127; 99212 ==

== ENCOUNTER → 2025-08-01 08:59 | Outpatient (RCR) | payer MEDICARE, MEDICAID, SELFPAY | END | disposition home or self-care (01) | LOC: HO.PT 06-28 14:00 | PROVIDERS: PCP Internal Medicine; Visit Provider Physician Assistant | DX: C49.9 Malignant neoplasm of connective and soft tissue, unspecified (principal) | CPT/HCPCS: 97110; 97140; 97161; 97530 ==

== ENCOUNTER 2025-08-02 08:29 | Emergency (ER) | payer MEDICARE, MEDICAID, SELFPAY ==
--- NOTE | ~2025-08-02 | XR_ITS ---
EXAMINATION: XR CHEST CLINICAL INFORMATION: SOB, cough COMPARISON: December 23, 2021. TECHNIQUE: PA and lateral views FINDINGS: Pulmonary reticular pattern. Mild prominence of the interstitial markings. No consolidation, pleural effusion or pneumothorax. No hyperinflation. Cardiomediastinal silhouette size is normal. Tortuosity thoracic aorta. Multilevel thoracolumbar spondylosis. XR/XR chest 2V IMPRESSION: Chronic interstitial lung disease with questionable superimposed acute small airway inflammatory processes in the correct clinical settings. Multilevel spondylosis, thoracic spine. Electronically signed by: Geovanni Hill MD 08/02/2025 08:56 AM EST
[2025-08-02 08:34] VITALS: BP 143/92; PULSE 114; RESP 20; TEMP 36.6; O2SAT 97; BMI 33.2
--- NOTE | 2025-08-02 08:40 | ECG_ITS ---
Test Reason : sob Blood Pressure : */* mmHG Vent. Rate : 112 BPM Atrial Rate : 112 BPM P-R Int : 144 ms QRS Dur : 90 ms QT Int : 330 ms P-R-T Axes : 28 62 12 degrees QTcB Int : 450 ms Sinus tachycardia Otherwise normal ECG When compared with ECG of 30-Oct-2024 14:35, Vent. rate has increased by 38 bpm Referred By: Generic ED Physician Electronically Signed By: Christian Beltran
--- NOTE | 2025-08-02 09:05 | ED_ITS ---
HPI - SOB/Dyspnea General Chief Complaint: Dyspnea Stated Complaint: cough, congestion Time Seen by Provider: 08/02/25 09:00 Source: patient Mode of arrival: ambulatory Limitations: no limitations History of Present Illness ED Provider: Damaris Shell PA-C HPI Narrative: Armand is a gentleman with history of high-grade sarcoma status-post MAC liver surgery (~2 years ago; wound fully healed x 1 year; no current chemotherapy or radiation) who presents for evaluation of progressive cough and shortness of breath (SOB) that began six days ago. Initially noted mild throat clearing which progressed to intermittent cough. Over the past several days he experienced episodes of ?hard coughs? producing a painful ?cheese-grated? sensation deep in the lungs. He perceives mucus rising from lower lungs and occasionally lodging in the upper airway that he must forcefully expectorate; unable to evaluate sputum color due to gag-induced emesis. SOB is worse when lying flat; last night he was unable to sleep because of combined cough and dyspnea. Reports new nasal congestion last night, which he attributes to frequent coughing. Denies fever, chest pain, or circulatory issues. Denies new-onset diarrhea (loose stools only after eating cane, chips, coffee). Appetite preserved. No prior similar respiratory episodes. No current medications taken for symptoms. Review of Systems: ? Respiratory: Positive for cough and SOB; worse supine. ? ENT: Positive for nasal congestion (last night); intermittent post-nasal drip historically. ? Constitutional: Denies fever. ? Cardiovascular: Denies chest pain or circulation problems. ? Gastrointestinal: Denies new diarrhea; loose stools only with specific foods. ? Musculoskeletal/Integumentary: Denies joint pain or rash. ? Allergic/Immunologic: Occasional post-nasal drip; reports some seasonal allergies. Related Data Previous Rx's ?Medication ?Instructions ?Recorded omeprazole 20 mg capsule,delayed 20 mg PO DAILY #90 ca ps 04/22/25 release doxycycline hyclate 100 mg capsule 100 mg PO BID #14 c aps 08/02/25 Allergies Allergy/AdvReac Type Severity Reaction Status Date / Time No Known Allergies Allergy Verified 08/02/25 08:38 [facility] Past Medical History Medical History Obesity (BMI 30-39.9) Liposarcoma Surgical History H/O excision of mass History of surgical procedure (~04/28/23) Social History Social History Housing: Apartment Alcohol intake: never Patient Tobacco Use Status: Never used Tobacco e-Cigarette/Vaping Use: Never Used Second Hand Smoke Exposure: No service: No Current occupational status: disabled Cognitive needs: No Hearing needs: No Vision needs: No Physical Exam 2 Exam: Exam: General: Appears in no acute distress, appears well nourished body habitus is obese, appears stated age. No septic or ill-appearing. Vitals reviewed normal, PMH/Social and Surgical hx reviewed including allergies and current medications. - reviewed for prior visits here Head: Normocephalic, no obvious trauma or skin lesions noted. Eyes: EOMI ENMT: moist oral mucosa, No tonsillar edema erythema or exudate, TMs clear, nasal turbinates pink no discharge Neck: trachea midline, no lymphadenopathy Cardiovascular: peripheral perfusion normal, Regular heart rate, regular rhythm Respiratory: no respiratory distress, no chest wall tenderness, clear Abdomen: nondistended Extremities: warm and moving without difficulty Psych: Cooperative Neuro: Alert and oriented. Vital Signs: Vital Signs: Last Vital Signs Temp 0 F L 08/02/25 11:18 Pulse 95 08/02/25 11:18 Resp 20 08/02/25 11:18 BP 00/00 L 08/02/25 11:18 Pulse Ox 97 08/02/25 11:18 O2 Del Method Room Air 08/02/25 11:18 BMI result Body Mass Index 33.2 Medical Decision Making Medical Decision Making MDM Narrative: Armand is a gentleman with a history of high-grade sarcoma status-post MAC liver surgery (wound healed, no current chemotherapy/radiation), chronic interstitial lung disease (new radiographic finding), and recent exposure to ill contacts. He presents with a 6-day history of progressive cough and shortness of breath, worse when supine, with intermittent productive and non-productive cough, painful deep coughs, and new nasal congestion. He denies fever, chest pain, circulatory issues, and has stable appetite. No prior similar respiratory episodes. Differential Diagnosis Considered: The differential diagnosis for acute cough and dyspnea in this patient includes: * Acute bronchitis (viral or bacterial) * Pneumonia * Heart failure * Pulmonary embolism * Aortic dissection * COVID-19 or other viral respiratory infections Clinical Reasoning: * Acute bronchitis: Most likely given the subacute onset of cough and dyspnea, absence of fever, and benign physical exam. Elevated WBC count supports acute infection. The majority of acute bronchitis cases are viral, but bacterial etiology is possible, especially with leukocytosis and persistent symptoms. * Pneumonia: Less likely due to absence of focal findings on chest X-ray, lack of fever, and clear lung exam. No consolidation or infiltrate identified. * Heart failure: Unlikely; patient has no history of heart disease, no peripheral edema, and heart failure marker is negative. No evidence of volume overload or cardiac symptoms. * Pulmonary embolism: Considered due to acute dyspnea, but D-dimer previously negative and no risk factors or clinical signs of PE present. * Aortic dissection: Ruled out based on absence of chest pain, hemodynamic stability, and lack of suggestive findings. * COVID-19/viral etiologies: COVID-19, influenza, and RSV PCRs are negative. Other viral etiologies remain possible, but clinical course and exposure history support acute bronchitis as primary diagnosis. Rationale for Empiric Doxycycline: Although acute bronchitis is predominantly viral, empiric doxycycline was chosen due to the presence of leukocytosis, underlying chronic lung disease, and the possibility of bacterial superinfection. Doxycycline provides coverage for atypical and common respiratory pathogens. Current guidelines recommend against routine antibiotics for acute bronchitis unless there is clinical suspicion for bacterial infection or pneumonia; in this case, the decision was made to treat empirically given the patient's risk factors and abnormal labs. Duration prescribed is 7 days, though guidelines suggest <= days is sufficient. Justification for Pulmonology Referral & Not Initiating Oxygen/Inhalers: Referral to pulmonology is indicated for further evaluation of chronic interstitial lung disease, as recommended by ATS/ERS guidelines, regardless of oxygen saturation or symptom burden. The patient is not hypoxic and has no wheezing or bronchospasm; therefore, oxygen and inhaler therapy are not indicated at this time. Monitoring and specialist evaluation are appropriate next steps. Assessment & Plan Armand presents with a 6-day history of progressive cough and orthopnea- associated SOB. Examination is benign and saturation stable. Work-up notable for elevated WBCs and chronic interstitial lung changes without clear focal pneumonia. Impression most consistent with acute bronchitis superimposed on underlying chronic interstitial lung disease (new radiographic finding). Management detailed below. Problem #1: Acute bronchitis with dyspnea Assessment: Intermittent productive and non-productive cough with painful deep coughs; SOB worse when supine; afebrile; labs show leukocytosis. Plan: * Pharmacologic: Doxycycline 1 tablet PO BID x 7 days (empiric coverage for possible bacterial etiology). * Supportive care: Encourage hydration; use warm humidified air (e.g., kettle/steam at home). May use guaifenesin if cough remains productive; avoid if cough is dry. * Activity: Elevate head of bed; anticipate difficulty lying flat for several days. * Warning signs reviewed: return for worsening SOB, fever, inability to clear secretions, or new chest pain. * Follow-up: Clinician to review any additional results with patient; routine follow-up as needed. Problem #2: Chronic interstitial lung disease (new radiographic finding) Assessment: Chronic interstitial changes noted on chest X-ray; etiology undetermined. Plan: * Referral to Pulmonology for further evaluation. * No oxygen or inhaler therapy indicated at present; monitor symptoms. Problem #3: History of high-grade sarcoma, status-post MAC liver surgery Assessment: Surgical site healed; no active oncologic therapy. Plan: * Continue with scheduled oncology follow-up on 08/06. * Monitor for new concerning symptoms and report as needed. Medications Prescribed Today Doxycycline 100?mg ? take 1 tablet twice daily for 7?days. Patient Education * Discussed nature of bronchitis and expected recovery course (may take ~1 month). * Reviewed importance of hydration, humidified air, and head-of-bed elevation. * Explained antibiotic use and potential side effects. Disposition Patient stable for discharge home. Follow-up per plans above. Patient verbalized understanding and agreement. Differential Diagnosis Differential Diagnoses: The differential diagnosis associated with the presentation includes - Acute bronchitis (viral or bacterial) - Pneumonia - Heart failure - Pulmonary embolism - Aortic dissection - COVID-19 or other viral respiratory infections Admission/Observation Consideration of admission/observation: Escalation of care including admission/observation considered Patient would have been admitted to the hospital had his work up had any findings where hospital admission was appropriate and his clinical presentation warranted hospital admission. Lab Data MDM Lab Attestation statement: I reviewed the patient's lab results. ? CBC: Elevated WBC count consistent with acute infection; no anemia. ? Comprehensive metabolic panel: No electrolyte imbalance; normal kidney and liver function. ? COVID-19, Influenza, RSV PCR: Negative. ? Heart failure marker: Negative. ? D-dimer: <150 ng/mL (negative). 08/02/25 09:15 08/02/25 09:15 Labs: Lab Results 08/02/25 08/02/25 Range/Units 08:57 09:15 WBC 8.9 (4.8-10.8) X10*3/uL RBC 5.83 H (4.60-5.80) X10*6/uL Hgb 16.0 (14.0-18.0) g/dl Hct 47.3 (42.0-52.0) % MCV 81.1 (80.0-98.0) fL MCH 27.4 (27.0-33.0) pg MCHC 33.8 (31.0-36.0) g/dl RDW 13.7 (11.0-16.0) % Plt Count 262 (160-400) X10*3/uL MPV 9.3 L (9.4-12.4) fL Immature Gran % (Auto) 0.4 (0.0-0.4) % Neut % (Auto) 69.8 (45-73) % Lymph % (Auto) 18.4 L (20-40) % [place] % (Auto) 6.5 (2-11) % Eos % (Auto) 4.3 H (0-4) % Baso % (Auto) 0.6 (0-2) % Lymph # (Auto) 1.6 (1.2-4.9) X10*3/uL [place] # (Auto) 0.6 (0.1-1.2) X10*3/uL Eos # (Auto) 0.4 (0.0-0.4) X10*3/uL Baso # (Auto) 0.1 (0.0-0.2) X10*3/uL Abs Immat Gran (auto) 0.04 H (0.00-0.03) X10*3/uL Absolute Neuts (auto) 6.2 (2.0-8.3) x10*3/uL Absolute Nucleated RBC 0.000 (0.0-0.012) X10*3/uL Nucleated RBC % (auto) 0.0 (0.0-0.2) /100WBC D-Dimer High Sensitivty < 150 NG/ML Sodium 139 (135-145) mmol/L Potassium 3.8 (3.3-5.1) mmol/L Chloride 107 (96-108) mmol/L Carbon Dioxide 24 (22-29) mmol/L Anion Gap 12 (12-20) BUN 18 H (9-16) mg/dL Creatinine 1.05 (0.5-1.4) mg/dL Estim Creat Clear Calc 109.0 Estimated GFR > 60 Random Glucose 115 (60-115) mg/dL Calcium 9.7 (8.4-10.2) mg/dL Total Bilirubin 0.5 (0.0-1.0) mg/dL AST 36 (5-37) U/L ALT 68 H (0-40) U/L Alkaline Phosphatase 80 (39-117) U/L NT-Pro-B Natriuret Pep 19.3 (<300) pg/mL Total Protein 7.6 (6.5-8.0) g/dL Albumin 4.4 (3.5-5.0) g/dL Influenza Type A (PCR) NEGATIVE (Negative) Influenza Type B (PCR) NEGATIVE (Negative) RSV RNA Qual (PCR) NEGATIVE (Negative) SARS-CoV-2 RNA (RT-PCR) NEGATIVE (Negative) Independent Interpretation I performed an independent interpretation of an: Plain X-Ray Interpretation: no obvious infiltrate Radiology Impression Discussion of test interpretation with radiology: I have reviewed the radiologist's reading. Radiologist Impression: Chest X-ray: Chronic interstitial lung disease; no obvious pneumonia identified. EKG: sinus tachy 112 bpm, no obvious malignant arrhythmia or ischemia Prescription Management I considered prescription management with: Antiviral and Antibiotic Chronic Conditions Patient?s care impacted by: Other Social Determinants Patient?s care significantly limited by Social Determinants of Health including: Other Social Determinant of Health Discharge Plan Discharge Clinical Impression: Acute bronchitis, Chronic interstitial lung disease Patient Disposition: Home, Self-Care Instructions: Acute Bronchitis (ED) Additional Instructions: Emergency department COURSE: Armand is a 45-year-old gentleman with a history of high-grade sarcoma status- post MAC liver surgery (approximately 2 years ago, fully healed) who presented to the emergency department with a 6-day history of progressive cough and dyspnea. The patient reported initial throat clearing that evolved into productive and non-productive cough with a cheese-grated sensation deep in the lungs. He experienced significant shortness of breath that worsened when lying flat, preventing sleep the night prior to presentation. He denied fever, chest pain, or circulation problems. Social history was significant for recent exposure to ill contacts. The patient is a non-smoker. DIAGNOSTIC WORKUP: Physical examination revealed an alert patient in no acute distress with nasal congestion but clear lung syed on auscultation bilaterally. No wheezes, rales, or rhonchi were appreciated. Vital signs were stable with normal oxygen saturation. Laboratory studies included a complete blood count demonstrating elevated white blood cell count consistent with acute infection, with no anemia. Comprehensive metabolic panel showed normal electrolytes, kidney function, and liver function. Negative D-dimer effectively ruled out pulmonary embolism in this low-risk patient. Normal NT-proBNP ruled out acute heart failure as a cause of his dyspnea. Respiratory viral panel (COVID-19, Influenza, RSV) was negative. Chest X-ray revealed chronic interstitial lung disease without evidence of focal pneumonia. CLINICAL ASSESSMENT: The combination of negative D-dimer and normal NT-proBNP was critical in ruling out major cardiopulmonary emergencies including pulmonary embolism, aortic dissection, and acute heart failure in this patient presenting with dyspnea. The diagnostic workup supported a diagnosis of acute bronchitis superimposed on underlying chronic interstitial lung disease. There was not an elevated white blood cell count, but given productive cough, and chest xray findings, acute bronchitis was diagnosed, likely with a bacterial component warranting empiric antibiotic therapy. TREATMENT PROVIDED: The patient was treated with doxycycline 100 mg orally twice daily for 7 days for acute bronchitis with suspected bacterial etiology. Supportive care measures were emphasized, including hydration, use of warm humidified air (steam inhalation), and head-of-bed elevation to alleviate orthopnea.The patient was counseled that while antibiotics do not routinely benefit acute bronchitis, they were prescribed in this case given clinical suspicion for bacterial infection and his underlying chronic lung disease. DISCHARGE MEDICATIONS: - Doxycycline 100 mg: Take 1 tablet by mouth twice daily for 7 days PATIENT INSTRUCTIONS FOR HOME CARE: 1. Symptom Management: - Elevate the head of your bed to reduce shortness of breath when lying down - Use warm humidified air (e.g., steam from a kettle or hot shower) to help loosen secretions - Stay well hydrated with plenty of fluids - You may use [id number] guaifenesin (expectorant) if your cough remains productive; avoid if cough becomes dry - The cough associated with acute bronchitis typically lasts 2-3 weeks; gradual improvement is expected 2. Medication Instructions: - Complete the full 7-day course of doxycycline as prescribed, even if you start feeling better - Take doxycycline with food and plenty of water to minimize stomach upset - Avoid prolonged sun exposure while taking doxycycline, as it can increase sun sensitivity 3. Activity: - Rest as needed - You may experience difficulty lying flat for several days; continue sleeping with your head elevated - Gradually resume normal activities as tolerated 4. Warning Signs - Return to Emergency Department or Call Your Doctor If You Experience: - Worsening shortness of breath or difficulty breathing - Development of fever (temperature >100.4?F or 38?C) - Inability to clear secretions or worsening cough - New chest pain - Coughing up blood - Symptoms that worsen despite treatment or do not improve after 1 week FOLLOW-UP CARE: 1. Pulmonology Referral: You have been referred to a refrigerated cargo clerk for evaluation of chronic interstitial lung disease identified on your chest X-ray. This is a new finding that requires further investigation to determine the cause and appropriate management. This appointment should be scheduled within the next few weeks. 2. Oncology Follow-Up: Continue with your scheduled oncology appointment on 08/06/2025 as planned. 3. Primary Care Follow-Up: Follow up with your primary care provider or return to our clinic in 1-2 weeks if symptoms persist or worsen, or sooner if any warning signs develop. DISPOSITION: Patient discharged home in stable condition with prescriptions and written discharge instructions. The patient verbalized understanding of the diagnosis, treatment plan, warning signs, and follow-up appointments, and expressed agreement with the plan of care. CONDITION AT DISCHARGE: Stable DISCHARGE DISPOSITION: Home Prescriptions: New doxycycline hyclate 100 mg capsule 100 mg PO BID Qty: 14 0RF No Action omeprazole 20 mg capsule,delayed release(DR/EC) 20 mg PO DAILY Qty: 90 1RF [place] [facility] [facility] [place]Provider Group, Pul[place]ology] Clinical Impression: Chronic interstitial lung disease Tutu Baez MD [Primary Care Provider, Internal Medicine] Clinical Impression: Chronic interstitial lung disease; Acute bronchitis Interventions: ED Discharge Assessment Last Done: 08/02/25 11:18 Discharge Date/Time: 08/02/25 11:19 Print Language: Montenegrin
[2025-08-02 09:16] VITALS: PULSE 111; RESP 20; O2SAT 97
[2025-08-02 09:21] LABS: MANUAL DIFF FLAG NO
[2025-08-02 09:23] LABS: Hematocrit 47.3 % (42.0-52.0); Hemoglobin 16.0 g/dl (14.0-18.0); Imm Gran Abs Auto 0.04 X10*3/uL (0.00-0.03); Imm Gran Pct Auto 0.4 % (0.0-0.4); Lymphocytes Absolute Auto 1.6 X10*3/uL (1.2-4.9); Mean Corpuscular HGB Conc 33.8 g/dl (31.0-36.0); Mean Corpuscular Hemoglobin 27.4 pg (27.0-33.0); Mean Corpuscular Volume 81.1 fL (80.0-98.0); NRBC Abs Auto 0.000 X10*3/uL (0.0-0.012); NRBC Pct Auto 0.0 /100WBC (0.0-0.2); Platelet Count 262 X10*3/uL (160-400); Red Blood Count 5.83 X10*6/uL (4.60-5.80); White Blood Count 8.9 X10*3/uL (4.8-10.8)
[2025-08-02 09:42] LABS: Resp Syncy Virus RNA Qual PCR NEGATIVE (Negative); SARS COV2 PCR INHOUSE NEGATIVE (Negative)
[2025-08-02 09:43] LABS: Alanine Aminotransferase 68 U/L (0-40); Albumin Level 4.4 g/dL (3.5-5.0); Alkaline Phosphatase 80 U/L (39-117); Anion Gap 12 (12-20); Aspartate Amino Transferase 36 U/L (5-37); Blood Urea Nitrogen 18 mg/dL (9-16); Calcium 9.7 mg/dL (8.4-10.2); Carbon Dioxide 24 mmol/L (22-29); Chloride 107 mmol/L (96-108); Creatinine Clr Calc Pharmacy 109.0; Estimated Glomerular Filt Rate > 60; Potassium 3.8 mmol/L (3.3-5.1); Sodium 139 mmol/L (135-145); Total Protein 7.6 g/dL (6.5-8.0)
[2025-08-02 09:51] LABS: D Dimer High Sensitivity < 150 NG/ML
[2025-08-02 09:58] LABS: NT Pro B Type Natriuretic Pept 19.3 pg/mL (<300)
--- OUTSIDE RECORDS SUMMARY | 2025-08-02 09:59 | XMS_ITS | Encounter Summary ---
Author Organization [facility] Address [address] [place] [address] Phone Care Team Providers Care Printed Products Assembler Name Role Phone Nelson Sultana MD Unavailable [phone] Divina Turner MD Unavailable Alyssa Currie MD, PhD Unavailable [phone] Zaynab Fowler MD, ANTHONY Unavailable [phone] Paola Slaazar [facility] Unavailable Tutu Baez MD Primary Care Provider [phone] Kameron Multani MD, PhD Unavailable [phone] Encounter Details Date Type Department Care Team (Late st Contact Info) Description 07/20/2025 Orders Only [facility] [place] [facility] at [address] [address] Provider, MD Luc[facility] [place] [address] Social History Tobacco Use Types Packs/Day Years Used Date Smoking Tobacco: Former Cigarettes - 2019 Comments:Quit all substances 2019 Alcohol Use Standard Drinks/Week Comments Not Currently 0 (1 standard drink = 0.6 oz pur e alcohol) Home Health Assessment: Transportation Answer Date Recorded Lack of Transportation (Medical) No 03/27/2024 Lack of Transportation (Non-Medical) No 03/27/2024 Patient Unable or Declines to Respond No 03/27/2024 Child or Family Care Answer Date Record ed Do you have problems with on e of the following making it difficult for you to work, study, or receive health care? No 07/01/2023 Education Answer Date Recorded Are you interested in more education? Not on gerber e 06/15/2023 Are you concerned about learning? Not on file 06/15/2023 No 06/15/2023 No 06/15/2023 Food Answer Date Recorded Within the past 6 months we worried whether our food would run out before we got money to buy more. Never True 10/11/2023 Within the past 6 months the food we bought just didn't last and we didn't have enough money to get more. Never True Residential Stability Answer Date Recor ded What is your housing situation today? I have celestine sing 10/11/2023 How many times have you move d in the past 12 months? Zero (I did not move) 10/11/2023 Paying for Meds Answer Date Recorded Do you have trouble paying for medicines? No 10/11/2023 Paying Utility Bills Answer Date Record ed Do you have trouble paying your heating or elect ricity bill? No 10/11/2023 Transportation Answer Date Recorded Has the lack of transportati on kept you from medical appointments or from getting medications? No 10/11/2023 Unemployment Answer Date Recorded Are you currently unemployed or working on a part-time or temporary basis, and looking for work? No 07/01/2023 Digital Access Answer Date Recorded No 10/11/2023 Yes 10/11/2023 Do you have reliable internet access at home? Ye s 10/11/2023 Do you have a device (e.g., phone, tablet, computer) with a working camera? Yes 10/11/2023 Intimate Partner Violence Answer Date R ecorded Are you denied basic needs s uch as food, clothing, or medical care? No 02/07/2025 In the past 12 months have y ou been in a relationship with a person who hurts, threatens, or tries to control you? No 02/07/2025 Are you denied basic needs s uch as food, clothing, or medical care? No 02/07/2025 In the past 12 months have y ou been in a relationship with a person who hurts, threatens, or tries to control you? No 02/07/2025 Sex and Gender Information Value Date Recorded Sex Assigned at Male 06/09/2023 3:14 PM EDT Legal Sex Male 3:13 PM EDT Gender Identity Male 06/09/2023 3:14 PM EDT Sexual Orientation Straight 09/06/2023 12 :53 PM EST documented as of this encounter Plan of Treatment Upcoming Encounters Date Type Department Care Team (Late st Contact Info) Description 08/06/2025 10:00 AM EST Office Visit [facility] Hematology Oncology Clinic at [address] [address] Kaemron Multani MD, PhD [address] [place] [address] [email or web address] 08/06/2025 11:00 AM EST Social Work [facility] Hematology Oncology Clinic at [address] [address] Kameron Multani MD, PhD [address] [place] [address] [email or web address] documented as of this encounter Procedures Procedure Name Priority Date/Time Associated Diagnosis Comments OUTSIDE PATHOLOGY Routine 07/20/2025 12:42 PM EST OUTSIDE LAB Routine 07/20/2025 12:39 PM EST documented in this encounter Results * Outside Pathology (07/20/2025 12:42 PM EST) us Historical Provider PATHOLOGY ORDERABLES Samira l Result * Outside Lab (Non-MGB) (07/20/2025 12:39 PM EST) us Historical Provider LAB BLOOD BKR ORDERABLES Final Result documented in this encounter Visit Diagnoses Not on filedocumented in this encounter Additional Health Concerns Assessment Noted Time PHQ-9 Depression Total Score: 0 12/21/19 24 7:48 PM EDT PHQ-2 Depression Total Score: 0 12/21/19 7:48 PM EDT documented as of this encounter Care Teams Printed Products Assembler Relationship Specialty Start Date End Date Tutu Baez MD [address] [place] [address] [place] [address] PCP - General Internal Medicine 02/07/25 Nelson Sultana MD [email or web address] Referring Physician Surgical Oncology 06/09/23 Divina Turner MD [address] [place] [address] [email or web address] Radiation Oncology 07/06/23 Alyssa Currie MD, PhD [address] [place] [address] [email or web address] Surgical Oncology 07/06/23 Zaynab Fowler MD, ANTHONY [address] [place] [address] [email or web address] Radiation Oncology 07/06/23 Paola Salazar, [facility] [address] [place] [address] [email or web address] Builder Operator Oncology 09/15/23 Kameron Multani MD, PhD [address] [place] [address] [email or web address] Primary Oncologist Hematology and Oncology 07/30/25 documented as of this encounter Additional Source Comments The information contained in this document represents components of the legal health record. It is not the complete legal health record.[facility]
--- OUTSIDE RECORDS SUMMARY | 2025-08-02 09:59 | XMS_ITS | Encounter Summary ---
Author Organization [facility] Address [address] [place] [address] Phone Care Team Providers Care Director Park Name Role Phone Pcp, Not Required Primary Care Provider Unavaila Nelson Johns MD Unavailable Divina Turner MD Unavailable Alyssa Currie MD, PhD Unavailable [phone] Zaynab Fowler MD, ANTHONY Unavailable Paola Salazar SHIP DESIGN TEACHER Unavailable Tutu Baez MD Primary Care Provider [phone] Kameron Multani MD, PhD Unavailable [phone] Encounter Details Date Type Department Care Team (Latest Contact Info) Description 12/20/2024 Transcribe Orders [facility] [address] [place] [address] Alana Guallpa PA-C [address], [place] [place] [address] Abdominal pain, epigastric (Primary Dx) Social History Tobacco Use Types Packs/Day Years Used Date Smoking Tobacco: Former Cigarettes 1 20 2 000 - 2019 Comments:Quit all substances 2019 Alcohol [...] is your housing situation today? I have celestinejamar kerns 10/11/2023 How many times have you move [...] as food, clothing, or medical care? No 10/11/2023 In the past 12 months have y ou been in a relationship with a person who hurts, threatens, or tries to control you? No 10/11/2023 Are you denied basic needs s uch as food, clothing, or medical care? No 10/11/2023 In the past 12 months have y ou been in a relationship with a person who hurts, threatens, or tries to control you? No 10/11/2023 Sex and Gender Information Value Date Recorded Sex Assigned at Male 06/09/2023 3:14 PM EDT Legal Sex Male 3:13 PM EDT Gender Identity Male 06/09/2023 3:14 PM EDT Sexual Orientation Straight 09/06/2023 12 :53 PM EST documented as of this encounter Plan of Treatment Upcoming Encounters Date Type Department Care Team (Late st Contact Info) Description 08/06/2025 10:00 AM EST Office Visit [facility] Hematology Oncology Clinic at [address] [address] Kameron Multani MD, PhD [address] [place] [address] [email or web address] 08/06/2025 11:00 AM EST Social Work [facility] Hematology Oncology Clinic at [address] [address] Kameron Multani MD, PhD [address] [place] [address] [email or web address] documented as of this encounter Results * Lipase (12/20/2024 1:32 PM EDT) LIPASE 52 16 - 63 U/L [facility] Blood 12/20/2024 1:32 PM EDT 12/20/2024 1:36 PM EDT us Alana Guallpa PA-C LAB BLOOD BKR ORDERABLES Final Result [address] [address] * C-Reactive Protein (12/20/2024 1:32 PM EDT) C REACTIVE PROTEIN <3.0 0.0 - 4.0 mg/L [facility] Blood 12/20/2024 1:32 PM EDT 12/20/2024 1:36 PM EDT us Alana Guallpa PA-C LAB BLOOD BKR ORDERABLES Final Result [address] [address] * Comprehensive metabolic panel (12/20/2024 1:32 PM EDT) Pathologist [facility] SODIUM 137 133 - 146 mmol/L [facility] POTASSIUM 4.0 3.3 - 5.1 mmol/L [facility] CHLORIDE 101 96 - 108 mmol/L [facility] CO2 25 21 - 35 mmol/L [facility] BUN 14 6 - 19 mg/dL [facility] CREATININE 1.10 0.5 - 1.5 mg/dL [facility] GLUCOSE 98 70 - 99 mg/dL [facility] ALBUMIN 4.4 3.9 - 4.8 g/dL [facility] TOTAL PROTEIN 7.8 6.5 - 8.0 g/dL [facility] CALCIUM 10.0 8.4 - 10.3 mg/dL [facility] ALKALINE PHOSPHATASE 78 39 - 117 U/L [facility] TOTAL BILIRUBIN 0.6 0.0 - 1.2 mg/dL [facility] AST 26 0 - 37 U/L [facility] ALT 35 0 - 40 U/L [facility] GLOBULIN 3.4 1 - 4.8 g/dL [facility] EGFR 85 >59 mL/min/1.7 3m2 [facility] Comment:Estimated glomerular filtration rate calculated using the CKD-EPI refit equation. ANION GAP 15 10 - 20 mmol/L [facility] Blood 12/20/2024 1:32 PM EDT 12/20/2024 1:36 PM EDT us Alana Guallpa PA-C LAB BLOOD BKR ORDERABLES Final Result Performing Organization Address City/[facility]/ZIP Co de Phone Number [address] [address] * (ABNORMAL) CBC (12/20/2024 1:32 PM EDT) WBC 9.89 4.00 - 11.00 K/uL [facility] RBC 5.93(H) 4.50 - 5.90 M/uL [facility] HGB 16.3 13.5 - 17.5 g/dL [facility] HCT 48.7 41.0 - 53.0 % [facility] PLT 247 150 - 450 K/uL [facility] MCV 82.1 80.0 - 100.0 fL [facility] MCH 27.5 27.0 - 31.0 pg [facility] MCHC 33.5 32.0 - 36.0 g/dL [facility] RDW 13.4 11.5 - 14.5 % [facility] MPV 9.7 8.4 - 12.0 [facility] NRBC 0.00 0.00 /100 WBCs [facility] ABSOLUTE NRBC 0.00 0.00 K/uL [facility] Blood 12/20/2024 1:32 PM EDT 12/20/2024 1:36 PM EDT us Alana Guallpa PA-C LAB BLOOD BKR ORDERABLES Final Result Performing Organization Address City/[facility]/ZIP Co de Phone Number [address] [address] * Immunoglobulin A (12/20/2024 1:32 PM EDT) IgA 191 70 - 400 mg/dL [facility] Blood 12/20/2024 1:32 PM EDT 12/20/2024 1:36 PM EDT Alana Guallpa PA-C LAB BLOOD BKR ORDERABLES Final Result [address] [place] [address] * Tissue transglutaminase IgA (12/20/2024 1:32 PM EDT) TTG IGA ANTIBODY <1.2 <4.0 (Negative) U/mL [facility] Blood 12/20/2024 1:32 PM EDT 12/20/2024 1:36 PM EDT us Alana Guallpa PA-C LAB BLOOD BKR ORDERABLES Final Result [facility] [address] [place] [address] documented in this encounter Visit Diagnoses Diagnosis Abdominal pain, epigastric- Primary documented in this encounter Additional Health Concerns Assessment Noted Time PHQ-9 Depression Total Score: 0 12/21/19 7:48 PM EDT PHQ-2 Depression Total Score: 0 12/21/19 7:48 PM EDT documented as of this encounter Care Teams Director Park Relationship Specialty Start Date End Date Pcp, Not Required PCP - General 06/09/23 02/06/25 Tutu Baez MD [address] [place] [address] Dr [address] [place] [address] PCP - General Internal Medicine 02/07/25 Nelson Sultana MD [email or web address] Referring Physician Surgical Oncology 06/09/23 Divina Turner MD [facility] [place] [address] [email or web address] Radiation Oncology 07/06/23 Alyssa Currie MD, PhD [address] [place] [address] [email or web address] Surgical Oncology 07/06/23 Zaynab Fowler MD, ANTHONY [address] [place] [address] [email or web address] Radiation Oncology 07/06/23 Paola Salazar, [address] [address] [email or web address] Stove Tender Oncology 09/15/23 Kameron Multani MD, PhD [address] [place] [address] [email or web address] Primary Oncologist Hematology and Oncology 07/30/25 documented as of this encounter Additional Source Comments The information contained in this document represents components of the legal health record. It is not the complete legal health record.[facility]
--- OUTSIDE RECORDS SUMMARY | 2025-08-02 09:59 | XMS_ITS | Encounter Summary ---
Author Organization [facility] Address [email or web address] [place] [address] Phone Care Team Providers Care Pile Header Name Role Phone Nelson Sultana MD Unavailable [phone] Divina Turner MD Unavailable Alyssa Currie MD, PhD Unavailable Zaynab Fowler MD, ANTHONY Unavailable Paola Salazar [facility] Unavailable Tutu Baez MD Primary Care Provider [phone] Kameron Multani MD, PhD Unavailable [phone] Encounter Details Date Type Department Care Team (Late st Contact Info) Description 02/07/2025 Procedure Pass [facility] Endoscopy Admitting Dept Virtual Department [address] [place] [address] Social History Tobacco Use Types Packs/Day Years Used Date Smoking Tobacco: Former Cigarettes 1 2 - 2019 Comments:Quit all substances 2019 Alcohol [...] Description 08/06/2025 10:00 AM EST Office Visit [facility] Hematology Oncology Clinic at [address] [address] Kameron Multani MD, PhD [address] [place] [address] [email or web address] 08/06/2025 11:00 AM EST Social Work [facility] Hematology Oncology Clinic at [address] [address] Kameron Multani MD, PhD [address] [place] [phone] [email or web address] documented as of this encounter Visit Diagnoses Not on filedocumented in this encounter Additional Health Concerns Assessment Noted Time PHQ-9 Depression Total Score: 0 12/21/19 24 7:48 PM EDT PHQ-2 Depression Total Score: 0 12/21/19 24 7:48 PM EDT documented as of this encounter Care Teams Pile Header Relationship Specialty Start Date End Date Tutu Baez MD [address] [place] [address] [place] [address] PCP - General Internal Medicine 02/07/25 Nelson Sultana MD [email or web address] Referring Physician Surgical Oncology 06/09/23 Divina Turner MD [address] [place] [address] [email or web address] Radiation Oncology 07/06/23 Alyssa Currie MD, PhD [address] [place] [address] [email or web address] Surgical Oncology 07/06/23 Zaynab Fowler MD, ANTHONY [address] [place] [address] [email or web address] Radiation Oncology 07/06/23 Paola Salazar, [address] [address] [email or web address] Retort Furnace Helper Oncology 09/15/23 Kameron Multani MD, PhD [address] [place] [address] [email or web address] Primary Oncologist Hematology and Oncology 07/30/25 documented as of this encounter Additional Source Comments The information contained in this document represents components of the legal health record. It is not the complete legal health record.[facility]
--- OUTSIDE RECORDS SUMMARY | 2025-08-02 10:00 | XMS_ITS | Encounter Summary ---
Author Organization [facility] Address [address] [place] [phone] Phone Care Team Providers Care Electrical Linesworker Name Role Phone Pcp, Not Required Primary Care Provider Unavaila Nelson Johns MD Unavailable Divina Turner MD Unavailable Alyssa Currie MD, PhD Unavailable Zaynab Fowler MD, ANTHONY Unavailable [phone] Paola SalazarSW Unavailable Tutu Baez MD Primary Care Provider [phone] Kameron Multani MD, PhD Unavailable [phone] Encounter Details Date Type Department Care Team (Late st Contact Info) Description 10/11/2023 Procedure Pass [facility] Periop [address] [place] [address] Social History Tobacco Use Types Packs/Day Years Used Date Smoking Tobacco: Former Cigarettes 1 20 2 000 - 2019 Comments:Quit all substances 2019 Alcohol Use Standard Drinks/Week Comments Not Currently 0 (1 standard drink = 0.6 oz pur e alcohol) Home Health Assessment: Transportation Answer Date Recorded Lack of Transportation (Medical) No 10/14/2023 Lack of Transportation (Non-Medical) No 10/14/2023 Patient Unable or Declines to Respond No 10/14/2023 Child or Family Care Answer Date Record [...] PM EST documented as of this encounter Functional Status * Calculated C-SSRS Risk Score (Lifetime/Recent) Answer Date of Assessment Author No Risk Indicated 10/11/2023 9:10 PM Gt King RN * [place] Suicide Severity Rating Scale (Screener/Recent Self-Report) Question Answer Date of Assessment Author 1. Wish to be (Past 1 Month) No 10/11/2023 9:10 PM Angeli King RN 2. Non-Specific Active Suicidal Thoughts (Past 1 Month) No 10/11/2023 9:10 PM Angeli King RN 6. Suicidal Behavior (Lifetime) No 10/11/2023 9:10 PM Angeli King RN documented as of this encounter Plan of Treatment Upcoming Encounters Date Type Department Care Team (Late st Contact Info) Description 08/06/2025 10:00 AM EST Office Visit [facility] Hematology Oncology Clinic at [address] [address] Kameron Multani MD, PhD [address] [place] [address] [email or web address] 08/06/2025 11:00 AM EST Social Work [facility] Hematology Oncology Clinic at [address] [address] Kameron Multani MD, PhD [address] [place] [address] [email or web address] documented as of this encounter Visit Diagnoses Not on filedocumented in this encounter Additional Health Concerns Assessment Noted Time PHQ-2 Depression Total Score: 0 09/23/19 24 7:25 AM EST documented as of this encounter Care Teams Electrical Linesworker Relationship Specialty Start Date End Date Pcp, Not Required PCP - General 06/09/23 02/06/25 Tutu Baez MD [address] [place] [address] [place] [address] PCP - General Internal Medicine 02/07/25 Nelson Sultana MD [email or web address] Referring Physician Surgical Oncology 06/09/23 Divina Turner MD [address] [place] [address] [email or web address] Radiation Oncology 07/06/23 Alyssa Currie MD, PhD [address] [place] [address] [email or web address] Surgical Oncology 07/06/23 Zaynab Fowler MD, ANTHONY [address] [place] [address] [email or web address] Radiation Oncology 07/06/23 Paola Salazar, [facility] [address] [place] [address] [email or web address] [employer] French Teacher Oncology 09/15/23 Kameron Multani MD, PhD [address] [place] [address] [email or web address] Primary Oncologist Hematology and Oncology 07/30/25 documented as of this encounter Additional Source Comments The information contained in this document represents components of the legal health record. It is not the complete legal health record.[facility]
--- OUTSIDE RECORDS SUMMARY | 2025-08-02 10:02 | XMS_ITS | Encounter Summary ---
Author Organization [facility] Address [address] [place] [address] Phone Care Team Providers Care Manufacturing Quality Technician Name Role Phone Pcp, Not Required Primary Care Provider Unavaila Nelson Johns MD Unavailable Divina Turner MD Unavailable Alyssa Currie MD, PhD Unavailable Zaynab Fowler MD, ANTHONY Unavailable Paola SalazarSW Unavailable Tutu Baez MD Primary Care Provider [phone] Kameron Multani MD, PhD Unavailable [phone] Encounter Details Date Type Department Care Team (Late st Contact Info) Description 07/14/2023 Procedure Pass [facility], [facility] [address] [place] [address] Social History Tobacco Use Types Packs/Day Years Used Date Smoking Tobacco: Former Cigarettes Comments:Quit all substances 2019 Alcohol Use Standard Drinks/Week Comments Not Currently 0 (1 standard drink = 0.6 oz pur e alcohol) Child or Family Care Answer Date Record [...] before we got money to buy more. Sometimes True 023 Food didn't last Not on file 07/01/2023 Residential Stability Answer Date Recor ded Family situation today data Not on file 06/16 How many times have you move d in the past 12 months? Zero (I did not move) 07/01/2023 Paying for Meds Answer Date Recorded Do you have trouble paying for medicines? No 07/01/2023 Paying Utility Bills Answer Date Record ed Do you have trouble paying your heating or elect ricity bill? Yes 07/01/2023 Transportation Answer Date Recorded Has the lack of transportati on kept you from medical appointments or from getting medications? Yes 07/01/2023 Unemployment Answer Date Recorded Are you currently unemployed or working on a part-time or temporary basis, and looking for work? No 07/01/2023 Digital Access Answer Date Recorded No 06/15/2023 No 06/15/2023 Reliable internet access at home? Not on file 06/15/2023 Device with a working camera? Not on file Sex and Gender Information Value Date Recorded Sex Assigned at Male 06/09/2023 3:14 PM EDT Legal Sex Male 3:13 PM EDT Gender Identity Male 06/09/2023 3:14 PM EDT Sexual Orientation Straight 09/06/2023 12 :53 PM EST documented as of this encounter Plan of Treatment Upcoming Encounters Date Type Department Care Team (Late st Contact Info) Description 08/06/2025 10:00 AM EST Office Visit [facility] Hematology Oncology Clinic at [address] [address] Kameron Multani MD, PhD [address] [place] [address] [email or web address] 08/06/2025 11:00 AM EST Social Work [facility] Hematology Oncology Clinic at [address] [place] [address] Kameron Multani MD, PhD [address] [place] [address] [email or web address] documented as of this encounter Visit Diagnoses Not on filedocumented in this encounter Care Teams Manufacturing Quality Technician Relationship Specialty Start Date End Date Pcp, Not Required PCP - General 06/09/23 02/06/25 Tutu Baez MD [address] [place] [address] [place] [address] PCP - General Internal Medicine 02/07/25 Nelson Sultana MD [email or web address] Referring Physician Surgical Oncology 06/09/23 Divina Turner MD [address] [place] [address] [email or web address] Radiation Oncology 07/06/23 Alyssa Currie MD, PhD [address] [place] [address] [email or web address] Surgical Oncology 07/06/23 Zaynab Fowler MD, ANTHONY [address] [place] [address] [email or web address] Radiation Oncology 07/06/23 Paola Salazar, [facility] [address] [place] [address] Thaddeus@[email or web address] Machinist Supervisor Oncology 09/15/23 Kameron Multani MD, PhD [address] [place] [address] [place] [address] [email or web address] Primary Oncologist Hematology and Oncology 07/30/25 documented as of this encounter Additional Source Comments The information contained in this document represents components of the legal health record. It is not the complete legal health record.[facility]
--- OUTSIDE RECORDS SUMMARY | 2025-08-02 10:02 | XMS_ITS | Clinical Summary ---
Author Organization [facility] Address [address] [place] [address] Phone Care Team Providers Care Area Development Consultant Name Role Phone Nelson Sultana MD Unavailable [phone] Divina Turner MD Unavailable Alyssa Currie MD, PhD Unavailable [phone] Zanyab Fowler MD, ANTHONY Unavailable [phone] Paola SalazarSW Unavailable [phone] Sam Cline MD Primary Care Provider [phone] Kameron Multani MD, PhD Unavailable [phone] Allergies No known active allergies Medications enoxaparin (LOVENOX) 40 mg/0.4 mL Syrg subcutaneous syringe Inject 0.4 mL (40 mg total) under the skin daily for 28 days. 11.2 mL 4 Active Additional Information Patient not taking.Informant: Self, Reported on 02/07/2025 polyethylene glycol (MIRALAX) 17 gram packet Take 17 g by mouth daily. 4 Active Additional Information Patient not taking.Reported on 02/07/2025 ibuprofen (ADVIL,MOTRIN) 600 MG tablet Take 600 mg by mouth every 6 (six) hours as needed for pain (specific location in comments) (for mild to moderate pain). 4 Active oxyCODONE 5 MG immediate release tablet Take 1 tablet (5 mg total) by mouth every 4 (four) hours as needed. Partial fill ok 4 tablet Active Additional Information Patient not taking.Reported on 02/07/2025 nystatin (NYSTOP) powder Apply topically 4 (four) times a day. 60 g 4 Active Additional Information Patient not taking.Reported on 02/07/2025 omeprazole (PRILOSEC) 20 mg TbEC Take 1 tablet by mouth every morning. 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 Encounters Date Type Department Care Team Description 07/20/2025 Orders Only [facility] Hematology Oncology Clinic at [address] [address] Provider, MD Lucille 07/17/2025 Telephone [facility] at [address] [address] Unknown, MD Aleksandra Oncology Referral from Last 3 Months Immunizations No known immunizations Family History Medical History Relation Comments Coronary artery disease Maternal Grandfather Diabetes Maternal Grandfather Coronary artery disease Maternal Grandmother Diabetes Maternal Grandmother Breast cancer Mother Lung cancer Paternal Grandmother Relation Status Comments Maternal Grandfather Maternal Grandmother Mother Paternal Grandmother Social History Tobacco Use Types Packs/Day Years Used Date Smoking Tobacco: Former Cigarettes 1 20 - 2019 Tobacco Cessation:Counseling Given: Not Answered Comments:Quit all substances 2018 Alcohol Use Standard Drinks/Week Comments Not Currently [...] your housing situation today? I have celestine kerns 10/11/2023 How many times have you [...] Orientation Straight 09/06/2023 12 :53 PM EST Last Filed Vital Signs Vital Sign Reading Time Taken Comments Blood Pressure 114/77 02/07/2025 1:17 PM EDT Pulse 78 02/07/2025 1:17 PM EDT Temperature 36.3 C (97.3 F) 02/07/2025 1:02 PM EDT Respiratory Rate 18 02/07/2025 1:17 PM EDT Oxygen Saturation 96% 02/07/2025 1:17 PM EDT Inhaled Oxygen Concentration - - Weight 104.3 kg (230 lb) 02/01/2025 3:19 PM EDT Height 175.3 cm (5' 9 ) 02/01/2025 3:19 PM EDT Body Mass Index 33.97 02/01/2025 3:19 PM EDT Plan of Treatment Upcoming Encounters Date Type Department Care Team (Late st Contact Info) Description 08/06/2025 10:00 AM EST Office Visit [facility] On[facility] Clinic at [address] [address] Kameron Multani MD, PhD [address] [place] [address] [email or web address] 08/06/2025 11:00 AM EST Social Work [facility] H[facility] Oncology Clinic at [address] [address] Kameron Multani MD, PhD [address] [place] [address] [email or web address] Health Maintenance Due Date Last Done Comments Adult Td,Tdap Booster 1980 LIPID PANEL 1980 HEPATITIS C SCREENING 1999 HIV ONE-TIME SCREENING (18-6 5 YEARS) 1999 PNEUMOCOCCAL VACCINES (0-49 years) (1 of 2 - PCV) 01/22/2000 DEPRESSION SCREENING 12/20/2024 12/21/2023, 12/21/2023 INFLUENZA VACCINE (#1) 2025 COVID-19 VACCINE ( - 2024-2 6 season) 2025 COLOGUARD 07/17/2025 FIT TEST 07/17/2025 FOBT 07/17/2025 SIGMOIDOSCOPY 07/17/2025 VIRTUAL COLONOSCOPY 07/17/2025 SCREENING FOR DIABETES 12/21/2027 12/20/2024 SMOKING STATUS SCREENING (Every 5 Years) 02/07/2030 02/07/2025 COLONOSCOPY 02/07/2035 02/07/2025 COLORECTAL CANCER SCREENING 02/07/2035 HEPATITIS A VACCINES Aged Out No long er eligible based on patient's age to complete this topic HIB VACCINES Aged Out No longer eligi ble based on patient's age to complete this topic MENINGOCOCCAL VACCINES (ACWY) Aged Out No longer eligible based on patient's age to complete this topic MENINGOCOCCAL VACCINES (B) Aged Out N o longer eligible based on patient's age to complete this topic Medical Devices Not on file Procedures Procedure Name Priority Date/Time Associated Diagnosis Comments OUTSIDE PATHOLOGY Routine 07/20/2025 12: 42 PM EST OUTSIDE LAB Routine 07/20/2025 12:39 PM EST ENDOSCOPY, COLON 02/07/2025 12:1 6 PM EDT from Last 3 Months or Most Recently Relevant to Health Maintenance Results * Outside Pathology (07/20/2025 12:42 PM EST) us Historical Provider PATHOLOGY ORDERABLES Samira l Result * Outside Lab (Non-MGB) (07/20/2025 12:39 PM EST) us Historical Provider LAB BLOOD BKR ORDERABLES Final Result * ENDOSCOPY, COLON (02/07/2025 12:16 PM EDT) Narrative Transcriptions Morena Shelton MD - 02/07/2025 12:16 PM EDT [facility] Patient Name: Armand Galvez Attending MD:: MORENA SHELTON MD, Procedure Date: 02/07/2025 12:16 PM Date of : 1980 Age: 45 Admit Type: Outpatient Gender: [facility] Referring MD: SAM CLINE MD Exam Type: Colonoscopy Indications: Epigastric abdominal pain, Hematochezia Medications: Monitored Anesthesia Care Procedure: Informed consent was obtained from the patientafter discussion of the indications, limitations, alternatives, benefits, and risks of the procedure. Risks specifically discussed include but are not limited to medication reactions, missed lesions, bleeding, perforation, or the need for emergent surgery. Throughout the procedure, the patient's blood pressure, pulse, end-tidal CO2, and oxygensaturations were monitored continuously. The Olympus adult variable colonoscope [id number] #7 was introduced through the anus and advanced to the terminal ileum, with identification of theappendiceal orifice and IC valve. The colonoscopy was performed without difficulty. The patient tolerated the procedure well. The quality of the bowelpreparation was excellent. The terminal ileum, ileocecal valve, appendiceal orifice, and rectum werephotographed. Complications: No immediate complications. Estimated blood loss:None. Findings: The terminal ileum appeared normal. Examination of the right colon was repeated in retroflexion and again in NBI. Retroflexion wasalso performed in the rectum. Internal hemorrhoids were found duringretroflexion. The hemorrhoids were moderate. The exam was otherwise without abnormality. Impression: - The examined portion of the ileum was normal. - Internal hemorrhoids. - The examination was otherwise normal. - No specimens collected. Recommendation: - Patient has a contact number available for emergencies. The signsand symptoms of potential delayed complications were discussed with the patient. Return to normal activities tomorrow. Written discharge instructions were provided to the patient. - Repeat colonoscopy in 10 years for screening purposes. - Consider in-office hemorrhoid banding therapy, if needed. - Return to GI office as previously scheduled. Morena Shelton MORENA SHELTON MD 02/07/2025 1:02:52 PM This report has been signed electronically. Number of Addenda: 0 Note Initiated On: 02/07/2025 12:16 PM Procedure Code(s): --- Professional --- 30884, Colonoscopy, flexible; diagnostic, including collection of specimen(s) by brushing or washing, when performed (separateprocedure) --- Technical --- 24932, Colonoscopy, flexible; diagnostic, including collection of specimen(s) by brushing or washing, when performed (separateprocedure) CPT copyright 2021 [employer]. All rights reserved. The codes documented in this report are preliminary and upon cross cut sawyer reviewmay be revised to meet current compliance requirements. Procedure Date: 02/07/2025 12:16:14 PM [address] [place] [address] Sam Cline MD GI PROCEDURE ORDERABLES F inal Result from Last 3 Months or Most Recently Relevant to Health Maintenance Insurance [address] [place] [address] MEDICARE PART A & B [facility] MEDICARE PART A & B [facility] MEDICARE PART A & B [facility] PART [facility] PART A & B [place] [id number] [place] [id number] MEDICARE PART A & B [place] Care Teams Area Development Consultant Relationship Specialty Start Date End Date Sam Cline MD [address] [place] [address] [place] [address] PCP - General Internal Medicine 02/07/25 Nelson Sultana MD [email or web address] Referring Physician Surgical Oncology 06/09/23 Divina Turner MD [facility] [place] [address] [email or web address] Radiation Oncology 07/06/23 Alyssa Currie MD, PhD [address] [place] [address] [email or web address] Surgical Oncology 07/06/23 Zaynab Fowler MD, ANTHONY [address] [place] [address] [email or web address] Radiation Oncology 07/06/23 Paola Salazar, [address] [address] Thaddeus@[email or web address] Pie Maker Machine Oncology 09/15/23 Kameron Multani MD, PhD [address] [place] [address] [email or web address] Primary Oncologist Hematology and Oncology 07/30/25 Additional Source Comments The information contained in this document represents components of the legal health record. It is not the complete legal health record.[facility]
--- OUTSIDE RECORDS SUMMARY | 2025-08-02 10:02 | XMS_ITS | Encounter Summary ---
Author Organization [facility] Address [address] [place] [address] Phone Care Team Providers Care [employer] Wiring Technician Name Role Phone Pcp, Not Required Primary Care Provider Unavaila Nelson Johns MD Unavailable Divina Turner MD Unavailable Alyssa Currie MD, PhD Unavailable [phone] Zaynab Fowler MD, ANTHONY Unavailable Paola SalazarSW Unavailable [phone] Tutu Baez MD Primary Care Provider [phone] Kameron Multani MD, PhD Unavailable [phone] Encounter Details Date Type Department Care Team (Late st Contact Info) Description 07/14/2023 Procedure Pass [facility], Ct Scan - [facility] [address] [place] [address] Social History Tobacco Use Types Packs/Day Years [...] Description 08/06/2025 10:00 AM EST Office Visit [facility] H[facility]ology Oncology Clinic at [address] [address] Kameron Multani MD, PhD [address] [place] [address] [email or web address] 08/06/2025 11:00 AM EST Social Work [facility] Hematology Oncology Clinic at [address] [place] [address] Kameron Multani MD, PhD [address] [place] [address] [email or web address] documented as of this encounter Visit Diagnoses Not on filedocumented in this encounter Care Teams [employer] Wiring Technician Relationship Specialty Start Date End Date Pcp, Not Required PCP - General 06/09/23 02/06/25 Tutu Baez MD [address] [place] [address] [place] [address] PCP - General Internal Medicine 02/07/25 Nelson Sultana MD [email or web address] Referring Physician Surgical Oncology 06/09/23 Divina Turner MD [address] [place] [address] [email or web address] Radiation Oncology 07/06/23 Alyssa Currie MD, PhD [address] [place] [address] [email or web address] Surgical Oncology 07/06/23 Zaynab Fowler MD, ANTHONY [address] [place] [phone] [email or web address] Radiation Oncology 07/06/23 Paola Salazar, [facility] [address] [place] [address] [email or web address] Social Insurance Adviser Oncology 09/15/23 Kameron Multani MD, PhD [address] [place] [address] [email or web address] Primary Oncologist Hematology and Oncology 07/30/25 documented as of this encounter Additional Source Comments The information contained in this document represents components of the legal health record. It is not the complete legal health record.[facility]
--- OUTSIDE RECORDS SUMMARY | 2025-08-02 10:04 | XMS_ITS | Encounter Summary ---
Author Organization [facility] Address [address] [place] [address] Phone Care Team Providers Care Communication Electronic Technician Name Role Phone Pcp, Not Required Primary Care Provider Unavaila Nelson Johns MD Unavailable Divina Turner MD Unavailable Alyssa Currie MD, PhD Unavailable Zaynab Fowler MD, ANTHONY Unavailable Paola SalazarSW Unavailable Tutu Baez MD Primary Care Provider [phone] Kameron Multani MD, PhD Unavailable [phone] Encounter Details Date Type Department Care Team (Late st Contact Info) Description 11/04/2023 Procedure Pass [facility], Ct Scan - [facility] [address] [place] [address] Social History Tobacco Use Types Packs/Day Years Used Date Smoking Tobacco: Former Cigarettes 1 2 000 - 2019 Comments:Quit all substances [...] Date of Assessment Author No Risk Indicated 11/04/2023 11:26 AM EDT Sho Leonardo RN * [place] Suicide Severity Rating Scale (Screener/Recent Self-Report) Question Answer Date of Assessment Author 1. Wish to be (Past 1 Month) No 024 11:26 AM IHSANT Sho Babin RN 2. Non-Specific Active Suici manuel Thoughts (Past 1 Month) No 11/04/2023 11:26 AM EDT Saul Babin RN 6. Suicidal Behavior (Lifetime) No 11:26 AM EDT Sho Babin RN documented as of this encounter Plan of Treatment Upcoming Encounters Date Type Department Care Team (Late st Contact Info) Description 08/06/2025 10:00 AM EST Office Visit [facility] Hematology Oncology Clinic at [address] [address] Kameron Multani MD, PhD [address] [place] [phone] [email or web address] 08/06/2025 11:00 AM EST Social Work [facility] Hematology Oncology Clinic at [address] [address] Kameron Multani MD, PhD [address] [place] [address] [email or web address] documented as of this encounter Visit Diagnoses Not on filedocumented in this encounter Additional Health Concerns Assessment Noted Time PHQ-2 Depression Total Score: 0 09/23/19 24 7:25 AM EST documented as of this encounter Care Teams Communication Electronic Technician Relationship Specialty Start Date End Date Pcp, Not Required PCP - General 06/09/23 02/06/25 Tutu Baez MD [address] [place] [address] [place] [address] PCP - General Internal Medicine 02/07/25 Nelson Sultana MD [email or web address] Referring Physician Surgical Oncology 06/09/23 Divina Turner MD [address] [place] [phone] [email or web address] Radiation Oncology 07/06/23 Alyssa Currie MD, PhD [address] [place] [address] [email or web address] Surgical Oncology 07/06/23 Zaynab Fowler MD, ANTHONY [address] [place] [phone] [email or web address] Radiation Oncology 07/06/23 Paola Salazar, [facility] [address] [place] [address] Thaddeus@[email or web address] Dialysis Clinical Manager Oncology 09/15/23 Kameron Multani MD, PhD [address] [place] [phone] [email or web address] Primary Oncologist Hematology and Oncology 07/30/25 documented as of this encounter Additional Source Comments The information contained in this document represents components of the legal health record. It is not the complete legal health record.[facility]
[2025-08-02 11:18] VITALS: BP 00/00; PULSE 95; RESP 20; TEMP -17.7; TEMP 0; O2SAT 97
== END 2025-08-02 11:19 | disposition home or self-care (01) ==
PROVIDERS: Physician Assistant Medical; Emergency Provider Emergency Medicine Emergency Medical Services; PCP Internal Medicine
DX: J20.9 Acute bronchitis, unspecified (principal); R06.02 Shortness of breath; R05.9 Cough, unspecified; Z03.818 Encounter for observation for suspected exposure to other biological agents ruled out
CPT/HCPCS: 36415; 71046; 80053; 83880; 85025; 85379; 87637; 93005; 99283; 99285

== ENCOUNTER → 2025-08-02 08:40 | Outpatient (BNV) | payer MEDICARE, MEDICAID, SELFPAY | PROVIDERS: Emergency Provider Emergency Medicine Emergency Medical Services; PCP Internal Medicine; Visit Provider Internal Medicine Cardiovascular Disease | DX: R00.0 Tachycardia, unspecified (principal) | CPT/HCPCS: 93010 ==

== ENCOUNTER → 2025-08-02 08:50 | Outpatient (BNV) | payer MEDICARE, MEDICAID, SELFPAY | PROVIDERS: PCP Internal Medicine; Visit Provider Radiology Diagnostic Radiology | DX: J84.9 Interstitial pulmonary disease, unspecified (principal); M47.814 Spondylosis without myelopathy or radiculopathy, thoracic region | CPT/HCPCS: 71046 ==